=== PATIENT | female | born 2000 | race Caucasian/White ===

== ENCOUNTER 2020-01-21 12:10 | Emergency (ER) | payer BC, OTHER ==
--- NOTE | 2020-01-21 12:38 | ED ---
General Adult HPI - General Chief complaint: Abdominal Pain Stated complaint: right side abd pain Time Seen by Provider: 01/21/20 12:25 Source: patient, RN notes reviewed, old records reviewed Mode of arrival: ambulatory Limitations: no limitations - History of Present Illness Initial comments: This is a 19-year-old female who presents to the emergency department with sudden onset of right lower pelvic pain starting at 5:00 yesterday. Patient states the pain is gotten a little bit better but it continues to be quite sharp at this time. Patient states she's not because she is taking control. Patient denies any nausea vomiting diarrhea. Patient states the pain does not radiate to her back. Patient is denying any dysuria hematuria urinary frequency. Patient is no history of kidney stones. - Related Data Home Medications Medication Instructions Recorded Confirmed No Known Home Medications 03/23/14 01/21/20 Allergies Allergy/AdvReac Type Severity Reaction Status Date / Time No Known Allergies Allergy Verified 01/21/20 12:48 Review of Systems ROS Statement: Those systems with pertinent positive or pertinent negative responses have been documented in the HPI. ROS Other: All systems not noted in ROS Statement are negative. Past Medical History Past Medical History: No Reported History Additional Past Medical History / Comment(s): behavior problems History of Any Multi-Drug Resistant Organisms: None Reported Past Surgical History: No Surgical Hx Reported Additional Past Surgical History / Comment(s): pe tubes Past Psychological History: Depression Smoking Status: Never smoker Past Alcohol Use History: None Reported Past Drug Use History: Marijuana General Exam - General Exam Comments Initial Comments: GENERAL: Patient is well-developed and well-nourished. Patient is nontoxic and well- hydrated and is in mild distress. ENT: Neck is soft and supple. No significant lymphadenopathy is noted. Oropharynx is clear. Moist mucous membranes. Neck has full range of motion without eliciting any pain. EYES: The sclera were anicteric and conjunctiva were pink and moist. Extraocular movements were intact and pupils were equal round and reactive to light. Eyeli ds were unremarkable. PULMONARY: Unlabored respirations. Good breath sounds bilaterally. No audible rales rhonchi or wheezing was noted. CARDIOVASCULAR: There is a regular rate and rhythm without any murmurs gallops or rubs. ABDOMEN: Patient is tender in the right lower quadrant. More in the pelvis of the abdomen. SKIN: Skin is clear with no lesions or rashes and otherwise unremarkable. NEUROLOGIC: Patient is alert and oriented x3. Cranial nerves II through XII are grossly intact. Motor and sensory are also intact. Normal speech, volume and content. Symmetrical smile. MUSCULOSKELETAL: Normal extremities with adequate strength and full range of motion. No lower extremity swelling or edema. No calf tenderness. LYMPHATICS: No significant lymphadenopathy is noted PSYCHIATRIC: Normal psychiatric evaluation. Limitations: no limitations Course Vital Signs 01/21/20 01/21/20 12:23 13:50 Temperature 98.9 F Pulse Rate 78 82 Respiratory 18 20 Rate Blood Pressure 120/77 116/65 O2 Sat by Pulse 97 99 Oximetry Medical Decision Making - Medical Decision Making CT shows an ovarian cyst which is consistent with the ultrasound. - Lab Data Result diagrams: 01/21/20 12:48 01/21/20 12:48 Lab Results 01/21/20 01/21/20 01/21/20 Range/Units 12:37 12:37 12:48 WBC 12.8 H (4.0-11.0) k/uL RBC 4.84 (3.80-5.40) m/uL Hgb 13.2 (11.4-16.0) gm/dL Hct 40.6 (34.0-46.0) % MCV 83.9 (80.0-100.0) fL MCH 27.4 (25.0-35.0) pg MCHC 32.6 (31.0-37.0) g/dL RDW 14.4 (11.5-15.5) % Plt Count 258 (150-450) k/uL Neutrophils % 79 % Lymphocytes % 15 % Monocytes % 4 % Eosinophils % 0 % Basophils % 0 % Neutrophils # 10.1 H (1.3-7.7) k/uL Lymphocytes # 1.9 (1.0-4.8) k/uL Monocytes # 0.5 (0-1.0) k/uL Eosinophils # 0.0 (0-0.7) k/uL Basophils # 0.0 (0-0.2) k/uL Hypochromasia Slight Sodium (137-145) mmol/L Potassium (3.5-5.1) mmol/L Chloride (98-107) mmol/L Carbon Dioxide (22-30) mmol/L Anion Gap mmol/L BUN (7-17) mg/dL Creatinine (0.52-1.04) mg/dL Est GFR (CKD-EPI)AfAm (>60 ml/min/1.73 sqM) Est GFR (CKD-EPI)NonAf (>60 ml/min/1.73 sqM) Glucose (74-99) mg/dL Calcium (8.4-10.2) mg/dL Total Bilirubin (0.2-1.3) mg/dL AST (14-36) U/L ALT (4-34) U/L Alkaline Phosphatase (38-126) U/L Total Protein (6.3-8.2) g/dL Albumin (3.5-5.0) g/dL Amylase (30-110) U/L Lipase (23-300) U/L Urine Color Yellow Urine Appearance Clear (Clear) Urine pH 6.0 (5.0-8.0) Ur Specific [place] 1.031 (1.001-1.035) Urine Protein Trace H (Negative) Urine Glucose (UA) Negative (Negative) Urine Ketones Trace H (Negative) Urine Blood Negative (Negative) Urine Nitrite Negative (Negative) Urine Bilirubin Negative (Negative) Urine Urobilinogen 2.0 (<2.0) mg/dL Ur Leukocyte Esterase Negative (Negative) Urine HCG, Qual Not Detected (Not Detectd) 01/21/20 Range/Units 12:48 WBC (4.0-11.0) k/uL RBC (3.80-5.40) m/uL Hgb (11.4-16.0) gm/dL Hct (34.0-46.0) % MCV (80.0-100.0) fL MCH (25.0-35.0) pg MCHC (31.0-37.0) g/dL RDW (11.5-15.5) % Plt Count (150-450) k/uL Neutrophils % % Lymphocytes % % Monocytes % % Eosinophils % % Basophils % % Neutrophils # (1.3-7.7) k/uL Lymphocytes # (1.0-4.8) k/uL Monocytes # (0-1.0) k/uL Eosinophils # (0-0.7) k/uL Basophils # (0-0.2) k/uL Hypochromasia Sodium 140 (137-145) mmol/L Potassium 3.6 (3.5-5.1) mmol/L Chloride 103 (98-107) mmol/L Carbon Dioxide 27 (22-30) mmol/L Anion Gap 10 mmol/L BUN 11 (7-17) mg/dL Creatinine 0.56 (0.52-1.04) mg/dL Est GFR (CKD-EPI)AfAm >90 (>60 ml/min/1.73 sqM) Est GFR (CKD-EPI)NonAf >90 (>60 ml/min/1.73 sqM) Glucose 87 (74-99) mg/dL Calcium 9.8 (8.4-10.2) mg/dL Total Bilirubin 0.7 (0.2-1.3) mg/dL AST 22 (14-36) U/L ALT 14 (4-34) U/L Alkaline Phosphatase 91 (38-126) U/L Total Protein 8.1 (6.3-8.2) g/dL Albumin 5.0 (3.5-5.0) g/dL Amylase 62 (30-110) U/L Lipase 70 (23-300) U/L Urine Color Urine Appearance (Clear) Urine pH (5.0-8.0) Ur Specific [place] (1.001-1.035) Urine Protein (Negative) Urine Glucose (UA) (Negative) Urine Ketones (Negative) Urine Blood (Negative) Urine Nitrite (Negative) Urine Bilirubin (Negative) Urine Urobilinogen (<2.0) mg/dL Ur Leukocyte Esterase (Negative) Urine HCG, Qual (Not Detectd) Disposition Clinical Impression: Ovarian cyst Disposition: HOME SELF-CARE Condition: Good Instructions (If sedation given, give patient instructions): Ovarian Cyst (ED) Additional Instructions: 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 Patient should return for any worsening symptoms or fever. Is patient prescribed a controlled substance at d/c from ED?: No Referrals: Faraz Singh MD [Primary Care Provider] - 1-2 days Time of Disposition: 15:14
[2020-01-21 13:02] LABS: Appearance,Urine Clear (Clear); Bilirubin,Urine Negative (Negative); Blood,Urine Negative (Negative); Color,Urine Yellow; Glucose,Urine (UA) Negative (Negative); Ketones,Urine Trace (Negative); Leukocyte Esterase,Urine Negative (Negative); Nitrite,Urine Negative (Negative); Protein,Urine Trace (Negative); Specific Gravity,Urine 1.031 (1.001-1.035)
[2020-01-21 13:02] LABS: Basophils % (A) 0 %; Eosinophils % (A) 0 %; HCT 40.6 % (34.0-46.0); HGB 13.2 gm/dL (11.4-16.0); Hypochromasia Slight; Lymphocytes # (A) 1.9 k/uL (1.0-4.8); Lymphocytes % (A) 15 %; MCH 27.4 pg (25.0-35.0); MCHC 32.6 g/dL (31.0-37.0); MCV 83.9 fL (80.0-100.0); Mean Platelet Volume 7.1; Monocytes # (A) 0.5 k/uL (0-1.0); Monocytes % (A) 4 %; Neutrophils # (A) 10.1 k/uL (1.3-7.7); Neutrophils % (A) 79 %; Platelet Count 258 k/uL (150-450); RBC 4.84 m/uL (3.80-5.40); RDW 14.4 % (11.5-15.5); WBC 12.8 k/uL (4.0-11.0)
[2020-01-21 13:13] LABS: ALT 14 U/L (4-34); AST 22 U/L (14-36); African American GFR (CKD) >90 (>60 ml/min/1.73 sqM); Alkaline Phosphatase 91 U/L (38-126); Amylase 62 U/L (30-110); Anion Gap 10 mmol/L; Blood Urea Nitrogen 11 mg/dL (7-17); Calcium 9.8 mg/dL (8.4-10.2); Carbon Dioxide 27 mmol/L (22-30); Chloride 103 mmol/L (98-107); Glucose 87 mg/dL (74-99); Non-African American GFR(CKD) >90 (>60 ml/min/1.73 sqM); Potassium 3.6 mmol/L (3.5-5.1); Sodium 140 mmol/L (137-145); Total Bilirubin 0.7 mg/dL (0.2-1.3); Total Protein 8.1 g/dL (6.3-8.2)
[2020-01-21 13:52] VITALS: RESP 20
--- NOTE | 2020-01-21 13:59 | US ---
EXAMINATION TYPE: US transvaginal plus Dopplers DATE OF EXAM: 01/21/2020 COMPARISON: NONE CLINICAL HISTORY: 19-year-old female Rule out ovarian torsion . Pt states sudden RLQ pain that starte d yesterday TECHNIQUE: Transvaginal sonographic images of the pelvis. Color Doppler and spectral waveform analysi s of the ovarian arteries and veins. Date of LMP: 01/09/2020 FINDINGS: EXAM MEASUREMENTS: Uterus: 6.8 x 2.8 x 3.7 cm Endometrial Stripe: 0.2 cm Right Ovary: 3.0 x 1.8 x 1.8 cm Left Ovary: 6.1 x 3.8 x 5.2 cm 1. Uterus: Anteverted with Fluid within the endocervical canal 2. Endometrium: wnl 3. Right Ovary: wnl, follicles 4. Left Ovary: Enlarged secondary to a hypoechoic lesion, probable hemorrhagic cyst= 4.7 x 2.8 x 3.9 cm Spectral, color and waveform doppler imaging shows good arterial and venous flow within the ovaries ; there is no evidence for ovarian torsion. 5. Bilateral Adnexa: wnl 6. Posterior cul-de-sac: wnl IMPRESSION: 1. Left ovary enlarged secondary to a 4.7 cm hypoechoic lesion, probable hemorrhagic cyst. Follow-up in 6-8 weeks to ensure involution. 2. No sonographic evidence for ovarian torsion. 3. Fluid within the endocervical canal could relate to menstruation.
--- NOTE | 2020-01-21 15:05 | CT ---
EXAMINATION TYPE: CT abdomen pelvis w con DATE OF EXAM: 01/21/2020 COMPARISON: Ultrasound 01/21/2020 HISTORY: RLQ pain CT DLP: 379.9 mGycm Automated exposure control for dose reduction was used. TECHNIQUE: Helical acquisition of images from the lung bases through the pelvis have been completed. CONTRAST: Performed without Oral Contrast and with IV Contrast, patient injected with 100 mL of Isovue 300. FINDINGS: LUNG BASES: No significant abnormality is appreciated. AORTA: No significant abnormality is appreciated. LIVER/GB: No significant abnormality is appreciated. PANCREAS: No significant abnormality is seen. SPLEEN: No significant abnormality is seen. ADRENALS: No significant abnormality is seen. KIDNEYS: No significant abnormality is seen. REPRODUCTIVE ORGANS: Oval focus of low-attenuation present in the left adnexal region likely correspo nds to ultrasound finding measure partially 5.6 x 2.4 x 4.1 cm BOWEL: Fluid-filled loops of small bowel are present. Appendix not seen definitively. FREE AIR: No Free Air visible. ASCITES: None visible. PELVIC ADENOPATHY: None visualized. RETROPERITONEAL ADENOPATHY: No Retroperitoneal Adenopathy visible. URINARY BLADDER: No significant abnormality is seen. OSSEOUS STRUCTURES: No significant abnormality is seen. IMPRESSION: LEFT OVARIAN LOW DENSE FOCUS LIKELY CORRESPONDS TO PATIENT'S ULTRASOUND FINDING. CORRELATE FOR POSSIB LE ENTERITIS. Additional findings above.
[2020-01-21 15:39] VITALS: BP 113/65; PULSE 81; TEMP 98.3
== END 2020-01-21 15:20 | disposition home or self-care (01) ==
LOC: EC 12:10
DX: N83.209 Unspecified ovarian cyst, unspecified side (principal)
CPT/HCPCS: 36415; 80053; 82150; 83690; 85025; 81003; 81025; 93975; 76830; 74177; 99284; Q9967

== ENCOUNTER → 2020-03-19 | Outpatient (CLI) | payer BC, OTHER ==
--- NOTE | 2020-03-20 13:50 | US ---
EXAMINATION TYPE: US pelvic complete DATE OF EXAM: 03/19/2020 COMPARISON: NONE CLINICAL HISTORY: N83.20 Previous left ovarian cyst. known left cyst TECHNIQUE: TA. Transabdominal sonographic images Date of LMP: 03/05/2020 EXAM MEASUREMENTS: Uterus: 8.6 x 3.1 x 4.6 cm Endometrial Stripe: 0.5 cm Right Ovary: 2.6 x 1.2 x 1.4 cm Left Ovary: 4.4 x 5.0 x 4.1 cm 1. Uterus: Anteverted wnl 2. Endometrium: wnl 3. Right Ovary: wnl 4. Left Ovary: 4.4 by 4.1 x 5.0 cm complex cyst as seen on previous US 2 months ago. Previous measur ement 4.7 x 2.8 x 3.9 cm. 5. Bilateral Adnexa: wnl 6. Posterior cul-de-sac: wnl IMPRESSION: 1. 4.4 cm complex cyst left ovary. This appears more hypoechoic on the current examination although s lightly larger by measurement criteria.
== END | disposition home or self-care (01) ==
LOC: RADUSWWP 16:22
PROVIDERS: ATTEND Obstetrics & Gynecology
DX: N83.202 Unspecified ovarian cyst, left side (principal)
CPT/HCPCS: 76856

== ENCOUNTER → 2020-05-07 | Outpatient (CLI) | payer BC, OTHER ==
--- NOTE | 2020-05-07 15:08 | US ---
EXAMINATION TYPE: US pelvic complete DATE OF EXAM: 05/07/2020 COMPARISON: US 03/19/2020, 01/21/2020 CLINICAL HISTORY: N83.0 Lt ovarian cyst. TECHNIQUE: . Transabdominal sonographic images of the pelvis were acquired. Date of LMP: End April 2020 EXAM MEASUREMENTS: Uterus: 8.0 x 3.0 x 3.3 cm Endometrial Stripe: 0.4 cm Right Ovary: 2.1 x 1.2 x 1.6 cm Left Ovary: 4.6 x 3.8 x 5.0 cm 1. Uterus: Anteverted wnl 2. Endometrium: wnl 3. Right Ovary: wnl 4. Left Ovary: Complex area visualized measuring 4.1 x 3.6 x 4.6. This measured 4.4 by 4.1 x 5.0 on 03/19/2020 Spectral, color and waveform doppler imaging shows arterial and venous flow within the left ovary. 5. Bilateral Adnexa: wnl as visualized 6. Posterior cul-de-sac: Tiny amount of free fluid visualized IMPRESSION: Left ovarian hypoechoic focus may represent hemorrhagic cyst, similar to prior exam
== END | disposition home or self-care (01) ==
LOC: RADUSWWP 12:13
PROVIDERS: ATTEND Obstetrics & Gynecology
DX: R93.89 Abnormal findings on diagnostic imaging of other specified body structures (principal); N83.202 Unspecified ovarian cyst, left side
CPT/HCPCS: 76856

== ENCOUNTER 2020-08-10 16:53 | Emergency (ER) | payer BC, OTHER ==
--- NOTE | 2020-08-10 17:56 | ED ---
Abdominal Pain HPI - General Chief Complaint: Abdominal Pain Stated Complaint: ovarian cyst Time Seen by Provider: 08/10/20 17:21 Source: patient, RN notes reviewed Mode of arrival: ambulatory Limitations: no limitations - History of Present Illness Initial Comments: A showed a 19-year-old female that comes emergency Department complaining of ovarian cyst pain. She stated that she has had similar pain to this but this one is more severe. No other pain is about a 5-6 out of 10, she does not want any pain medication at this point. It has been going on for about 1-2 days has been constant. Nothing is making the pain better or worse. She stated that there is a potential that she could be . She does not take control/quit taking it for about 2 months. She has recently had sexual activity. She denies any nausea vomiting diarrhea constipation fever fatigue chills. - Related Data Home Medications Medication Instructions Recorded Confirmed No Known Home Medications 03/23/14 01/21/20 Allergies Allergy/AdvReac Type Severity Reaction Status Date / Time No Known Allergies Allergy Verified 08/10/20 17:08 Review of Systems ROS Statement: Those systems with pertinent positive or pertinent negative responses have been documented in the HPI. ROS Other: All systems not noted in ROS Statement are negative. Past Medical History Past Medical History: No Reported History Additional Past Medical History / Comment(s): behavior problems History of Any Multi-Drug Resistant Organisms: None Reported Past Surgical History: No Surgical Hx Reported Additional Past Surgical History / Comment(s): pe tubes Past Psychological History: Anxiety, Depression Smoking Status: Never smoker Past Alcohol Use History: None Reported Past Drug Use History: Marijuana General Exam Limitations: no limitations General appearance: alert, in no apparent distress Head exam: Present: atraumatic, normocephalic, normal inspection Eye exam: Present: normal appearance, PERRL, EOMI. Absent: scleral icterus, conjunctival injection, periorbital swelling ENT exam: Present: normal exam, mucous membranes moist Neck exam: Present: normal inspection. Absent: tenderness, meningismus, lymphadenopathy Respiratory exam: Present: normal lung sounds bilaterally. Absent: respiratory distress, wheezes, rales, rhonchi, stridor Cardiovascular Exam: Present: regular rate, normal rhythm, normal heart sounds. Absent: systolic murmur, diastolic murmur, rubs, gallop, clicks GI/Abdominal exam: Present: soft, normal bowel sounds. Absent: distended, tenderness, guarding, rebound, rigid Extremities exam: Present: normal inspection, full ROM, normal capillary refill. Absent: tenderness, pedal edema, joint swelling, calf tenderness Back exam: Present: normal inspection Neurological exam: Present: alert, oriented X3, CN II-XII intact Psychiatric exam: Present: normal affect, normal mood Skin exam: Present: warm, dry, intact, normal color. Absent: rash Course Vital Signs 08/10/20 17:09 Temperature 99.0 F Pulse Rate 81 Respiratory 18 Rate Blood Pressure 109/71 O2 Sat by Pulse 99 Oximetry Medical Decision Making - Medical Decision Making 19-year-old female complaining of lower abdominal pain/ovarian cyst pain Ultrasound ordered test ordered Labs unremarkable negative . Case discussed with Dr. Mina was decided patient could discharged home with conservative management and follow-up with [facility]OOM [facility]KER. - Lab Data Result diagrams: 08/10/20 17:53 08/10/20 17:53 Lab Results 08/10/20 08/10/20 08/10/20 Range/Units 17:53 17:53 18:17 WBC 10.4 (4.0-11.0) k/uL RBC 4.91 (3.80-5.40) m/uL Hgb 13.0 (11.4-16.0) gm/dL Hct 40.2 (34.0-46.0) % MCV 82.0 (80.0-100.0) fL MCH 26.4 (25.0-35.0) pg MCHC 32.2 (31.0-37.0) g/dL RDW 14.2 (11.5-15.5) % Plt Count 245 (150-450) k/uL MPV 7.2 Neutrophils % 74 % Lymphocytes % 20 % Monocytes % 4 % Eosinophils % 0 % Basophils % 0 % Neutrophils # 7.7 (1.3-7.7) k/uL Lymphocytes # 2.1 (1.0-4.8) k/uL Monocytes # 0.4 (0-1.0) k/uL Eosinophils # 0.0 (0-0.7) k/uL Basophils # 0.1 (0-0.2) k/uL Sodium 141 (137-145) mmol/L Potassium 4.0 (3.5-5.1) mmol/L Chloride 105 (98-107) mmol/L Carbon Dioxide 27 (22-30) mmol/L Anion Gap 9 mmol/L BUN 7 (7-17) mg/dL Creatinine 0.52 (0.52-1.04) mg/dL Est GFR (CKD-EPI)AfAm >90 (>60 ml/min/1.73 sqM) Est GFR (CKD-EPI)NonAf >90 (>60 ml/min/1.73 sqM) Glucose 111 H (74-99) mg/dL Calcium 9.9 (8.4-10.2) mg/dL Total Bilirubin 0.4 (0.2-1.3) mg/dL AST 25 (14-36) U/L ALT 14 (4-34) U/L Alkaline Phosphatase 64 (38-126) U/L Total Protein 7.9 (6.3-8.2) g/dL Albumin 4.8 (3.5-5.0) g/dL Urine HCG, Qual Not Detected (Not Detectd) - Radiology Data Radiology results: report reviewed, image reviewed Increased size of the 6.6 cm complex left ovarian cystic structure again may represent hemorrhagic cyst. endometrioma not excluded. Consider confirmation with MRI given large size. Disposition Clinical Impression: Ovarian cyst Disposition: HOME SELF-CARE Condition: Stable Instructions (If sedation given, give patient instructions): Ovarian Cyst (ED) Additional Instructions: Please return to the Emergency Department if symptoms worsen or any other concerns. Follow-up primary care 1-2 days Follow-up with [facility] for possible MRI prescription. Take pain medications as needed. Is patient prescribed a controlled substance at d/c from ED?: No Referrals: Faraz Singh MD [Primary Care Provider] - 1-2 days Time of Disposition: 19:26
[2020-08-10 18:03] LABS: Basophils # (A) 0.1 k/uL (0-0.2); Basophils % (A) 0 %; Eosinophils % (A) 0 %; HCT 40.2 % (34.0-46.0); Lymphocytes # (A) 2.1 k/uL (1.0-4.8); Lymphocytes % (A) 20 %; MCH 26.4 pg (25.0-35.0); MCHC 32.2 g/dL (31.0-37.0); Mean Platelet Volume 7.2; Monocytes # (A) 0.4 k/uL (0-1.0); Monocytes % (A) 4 %; Neutrophils # (A) 7.7 k/uL (1.3-7.7); Neutrophils % (A) 74 %; Platelet Count 245 k/uL (150-450); RBC 4.91 m/uL (3.80-5.40); RDW 14.2 % (11.5-15.5); WBC 10.4 k/uL (4.0-11.0)
[2020-08-10 18:13] LABS: ALT 14 U/L (4-34); AST 25 U/L (14-36); African American GFR (CKD) >90 (>60 ml/min/1.73 sqM); Albumin 4.8 g/dL (3.5-5.0); Alkaline Phosphatase 64 U/L (38-126); Anion Gap 9 mmol/L; Blood Urea Nitrogen 7 mg/dL (7-17); Calcium 9.9 mg/dL (8.4-10.2); Carbon Dioxide 27 mmol/L (22-30); Chloride 105 mmol/L (98-107); Glucose 111 mg/dL (74-99); Non-African American GFR(CKD) >90 (>60 ml/min/1.73 sqM); Sodium 141 mmol/L (137-145); Total Bilirubin 0.4 mg/dL (0.2-1.3); Total Protein 7.9 g/dL (6.3-8.2)
--- NOTE | 2020-08-10 19:01 | US ---
EXAMINATION TYPE: US transvaginal DATE OF EXAM: 08/10/2020 COMPARISON: CT, US CLINICAL HISTORY: Ovarian cyst. Pain x 1 day. Hx left ovarian cyst. G0. TECHNIQUE: Transvaginal (TV). Transabdominal sonographic images of the pelvis were acquired. Date of LMP: Unknown EXAM MEASUREMENTS: Uterus: 7.1 x 4.2 x 3.3 cm Endometrial Stripe: 0.6 cm Right Ovary: 3.9 x 1.7 x 2.4 cm Left Ovary: 8.0 x 5.9 x 5.8 cm 1. Uterus: Anteverted Minimal fluid seen in cervical endometrium measuring 1.1 x 0.3 x 0.2 cm. Min imal fluid seen anterior/superior to uterus measuring 0.8 x 2.1 x 0.5 cm. 2. Endometrium: Measures 0.6 cm. 3. Right Ovary: Measures upper limits of normal versus slightly enlarged. 4. Left Ovary: Appears enlarged measuring 8 cm in length. Redemonstrated complex 6.6 x 5.0 x 5.0 cyst like structure, increased in size compared to prior study (previously measured 4.1 x 3.6 x 4.6 cm). Spectral, color and waveform doppler imaging shows arterial and venous flow within the ovaries. 5. Bilateral Adnexa: Anechoic fluid seen in left adnexa measuring 1.4 x 1.5 x 2.7 cm. 6. Posterior cul-de-sac: Fluid seen measuring 1.0 x 1.1 x 1.9 cm. IMPRESSION: Increased size of 6.6 cm complex left ovarian cystic structure again may represent hemorrhagic cyst. Other etiologies such as endometrioma not excluded. Consider confirmation with MRI, given large size . No evidence of ovarian torsion.
[2020-08-10 20:14] VITALS: BP 122/70; PULSE 68; RESP 16; TEMP 97.3
== END 2020-08-10 20:14 | disposition home or self-care (01) ==
LOC: EC 16:53
DX: N83.202 Unspecified ovarian cyst, left side (principal)
CPT/HCPCS: 36415; 76830; 80053; 81025; 85025; 93975; 99284

== ENCOUNTER 2020-08-25 06:25 | Day surgery (SDC) | payer BC, OTHER ==
[2020-08-24 09:12] VITALS: BMI 15.7
--- NOTE | 2020-08-24 18:04 | P.HPOB ---
History of Present Illness H&P Date: 08/24/20 Chief Complaint: Large left ovarian cyst, pelvic pain This is a 19 y.o. female, 0, who presents for laparoscopy with drainage of left ovarian cyst, possible ovarian cystectomy, possible left oophorectomy, possible ablation of endometriosis. She was originally diagnosed with a left ovarian cyst in May and the cyst measured 4.6 cm. Her latest US on 08/10/2020 showed a 6.6 x 5 x 5 cm complex left ovarian cyst with normal flow. She complains of sudden onset of left lower quadrant pain and pressure that radiates to her back and left buttocks. She has had decreased appetite, but no vomiting. She has been off control pills for about 1.5 months. She has had irregular menses since then. She may start on Xulane patches after surgery. 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 Currently sexually active. Social Hx: Single. 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 of Systems Constitutional: Denies chills, Denies fever Eyes: denies blurred vision, denies pain Ears, nose, mouth and throat: Denies headache, Denies sore throat Cardiovascular: Denies chest pain, Denies shortness of breath Respiratory: Denies cough Gastrointestinal: Reports abdominal pain, Reports nausea, Denies vomiting Genitourinary: Reports pelvic pain Menstruation: Reports menses variable Musculoskeletal: Reports low back pain Integumentary: Denies pruritus, Denies rash Neurological: Denies numbness, Denies weakness Psychiatric: Reports anxiety, Reports depression Past Medical History Past Medical History: No Reported History Additional Past Medical History / Comment(s): behavior problems History of Any Multi-Drug Resistant Organisms: None Reported Past Surgical History: Ear Surgery Additional Past Surgical History / Comment(s): pe tubes Past Anesthesia/Blood Transfusion Reactions: No Reported Reaction, Motion Sickness Past Psychological History: Anxiety, Depression Smoking Status: Never smoker Past Alcohol Use History: None Reported Past Drug Use History: Marijuana Additional Drug Use History / Comment(s): Daily Marijuana use. Advised no use 24 hrs prior to procedure. - Past Family History Mother Family Medical History: No Reported History Medications and Allergies Home Medications Medication Instructions Recorded Confirmed Type Ibuprofen [Motrin Ib] 400 mg PO DAILY 08/24/20 08/24/20 History Allergies Allergy/AdvReac Type Severity Reaction Status Date / Time No Known Allergies Allergy Verified 08/25/20 06:55 Exam Osteopathic Statement: *. No significant issues noted on an osteopathic structural exam other than those noted in the History and Physical/Consult. Intake and Output 08/24/20 08/24/20 08/24/20 06:59 14:59 22:59 Other: Weight 43.091 kg HEENT: within normal limits Heart: regular rate and rhythm Lungs: clear to auscultation bilaterally Abdomen: soft, mild tenderness in left lower quadrant Pelvic: uterus mid position, non-tender with fullness and tenderness in left adnexal region Extremities: neg. Juanito's. Assessment and Plan (1) Left ovarian cyst Current Visit: No Status: Acute Code(s): N83.202 - UNSPECIFIED OVARIAN CYST, LEFT SIDE SNOMED Code(s): 03208496 (2) Pelvic pain Current Visit: No Status: Acute Code(s): R10.2 - PELVIC AND PERINEAL PAIN SNOMED Code(s): 75602715 Plan: Proceed with laparoscopy, possible drainage left ovarian cyst, possible left ovarian cystectomy, possible ablation of endometriosis, possible left oophorectomy. I have discussed the risks, benefits, and alternative therapies for the above- mentioned procedure and for both sedation/anesthesia as well as necessary blood products administration, if indicated, as they pertain to this patient. The patient has indicated her understanding and acceptance of the risks and procedures discussed.
[~2020-08-25 06:25] MED LIST: DEXAMETHASONE SOD PHOSPHATE 4 MG/ML 1 ML VIAL IV ONE; LACTATED RINGERS 1,000 ML IV SCH; LIDOCAINE 1% (10MG/ML) FOR IV START INTRADERMA PRN; MIDAZOLAM 2 MG/2 ML VIAL IV PRN; ONDANSETRON 4 MG/2 ML VIAL IVP ONE; Pre Op ABX Message 1 EACH MISC MISCELLANE ONE
[2020-08-25] MEDS ORDERED: HYDROmorphone 0.5 MG/0.5 ML SYRINGE IVP PRN (07:00)
[2020-08-25] MEDS ORDERED: ROCURONIUM 10 MG/ML (5 ML VIAL) IV ONE (07:40)
[2020-08-25] MEDS ORDERED: GLYCOPYRROLATE 0.2 MG/ML 2 ML VIAL ONE (07:40)
[2020-08-25] MEDS ORDERED: PROPOFOL 10 MG/ML 20 ML VIAL IV ONE (07:40)
[2020-08-25] MEDS ORDERED: fentaNYL (PF) 50 MCG/ML 2 ML AMP ONE (07:40)
[2020-08-25] MEDS ORDERED: NEOSTIGMINE 1 MG/ML 10 ML VIAL ONE (07:40)
[2020-08-25] MEDS ORDERED: SUCCINYLCHOLINE CHLORIDE 100 MG/5 ML SYR IV ONE (07:40)
[2020-08-25] MEDS ORDERED: LIDOCAINE 1% INJ 10MG/ML (20 ML MDV) ONE (07:40)
[2020-08-25] MEDS ORDERED: KETOROLAC 15 MG/ML 1 ML VIAL ONE (07:40)
[2020-08-25] MEDS ORDERED: HYDROmorphone (PF) 1 MG/ML ONE (07:40)
[2020-08-25] MEDS ORDERED: MIDAZOLAM 2 MG/2 ML VIAL ONE (07:40)
[2020-08-25] MEDS ORDERED: BUPIVACAINE (PF) 0.25% 30 ML VIAL SQ ONE (07:43)
--- NOTE | 2020-08-25 08:33 | P.OP ---
Date of Procedure: 08/25/20 Preoperative Diagnosis: Large left ovarian cyst Pelvic pain Postoperative Diagnosis: Pelvic pain Large left ovarian endometrioma Endometriosis Procedure(s) Performed: Laparoscopy Drainage of large left ovarian endometrioma Anesthesia: BARBARA Surgeon: Rocio Lorenzo Estimated Blood Loss (ml): 10 Pathology: none sent Condition: stable Disposition: same day Indications for Procedure: This is a 19 y.o. female, 0, who presents for laparoscopy with drainage of left ovarian cyst, possible ovarian cystectomy, possible left oophorectomy, possible ablation of endometriosis. She was originally diagnosed with a left ovarian cyst in May and the cyst measured 4.6 cm. Her latest US on 08/10/2020 showed a 6.6 x 5 x 5 cm complex left ovarian cyst with normal flow. She complains of sudden onset of left lower quadrant pain and pressure that radiates to her back and left buttocks. She has had decreased appetite, but no vomiting. She has been off control pills for about 1.5 months. She has had irregular menses since then. She may start on Xulane patches after surgery. Operative Findings: Uterus is small, anteverted, sounded to 8-1/2 cm. Right ovary and tube appear normal. Left ovary is significantly enlarged and slightly adherent to the posterior cul-de-sac with a large amount of chocolate colored fluid within it. There are a couple implants of endometriosis immediately over the bladder. Appendix is visualized and appears normal. Description of Procedure: The patient is taken to the operating room where she is placed in the dorsal lithotomy position. She is prepped and draped in the normal sterile fashion. Her bladder is drained with a catheter and then removed. Examination is performed under anesthesia. Uterus is found to be anteverted with no adnexal masses on the right. There is a large fullness on the left. Next a bivalve speculum was placed in the patient's vagina and a single-tooth tenaculum was used to grasp the anterior lip of the cervix. The cervix is gently dilated with Rogers dilators until a sound could be placed. Uterus is sounded to 8 cm. The kroner uterine manipulator is then inserted through the cervix and the balloon is inflated. The single-tooth tenaculum is removed and the speculum is removed. Gloves are changed and attention is turned to the abdomen. A small vertical incision is made in the infraumbilical fold and then a 5 mm disposable bladeless trocar inserted under direct visualization using a towel clip to lift the abdomen. Once inside, pneumoperitoneum was achieved with CO2 gas. The insert was removed and the camera was replaced. Good hemostasis was noted. There was a little bit of gas under the omentum. She was placed in Trendelenburg position in the pelvic contents were inspected. A small stab incision is made suprapubically and a 5 mm disposable bladeless trocar was inserted. Next a probe was inserted and the pelvic contents were inspected. Pictures were taken. Upon lifting up the ovary out of the pelvis, a small hole was made in the ovarian cyst on the posterior side. A large amount of chocolate-colored fluid was extruded. A suction assembly line driver was used to suction the cyst fluid and irrigate the area. The ovary did decrease significantly in size with drainage of the cyst. There was a small adhesion posteriorly behind the ovary in the cul-de-sac. There was also noted to be a few implants of endometriosis on the bladder. Due to its location, this was not cauterized. Once the cyst was drained and irrigation was complete, the procedure was concluded. The inferior trocar was removed under direct visualization. Pneumoperitoneum was released. The upper trocar was then removed. The skin incisions were closed with 4-0 undyed Vicryl suture in a subcuticular fashion. Incision sites were then injected with quarter percent Marcaine. Approximately 6 mL were used. The kroner uterine manipulator was then deflated and removed. Minimal bleeding was noted. All sponge and needle counts are correct. The patient is then taken to recovery room in stable condition.
[2020-08-25 08:50] VITALS: TEMP 96.8
[2020-08-25 09:19] VITALS: RESP 16
[2020-08-25] MEDS ORDERED: HYDROcodone/APAP 5-325MG 1 EACH TAB ONE (09:46)
[2020-08-25] MEDS ORDERED: HYDROcodone/APAP 5-325MG 1 EACH TAB PO ONE (09:47)
[2020-08-25 10:34] VITALS: BP 102/57; PULSE 65
== END 2020-08-25 11:06 | disposition home or self-care (01) ==
LOC: OR 06:25
PROVIDERS: ATTEND Obstetrics & Gynecology
DX: N80.1 Endometriosis of ovary (principal); N80.8 Other endometriosis; R63.0 Anorexia; N92.6 Irregular menstruation, unspecified; F91.9 Conduct disorder, unspecified; F41.9 Anxiety disorder, unspecified; F32.9 Major depressive disorder, single episode, unspecified; Z68.51 Body mass index [BMI] pediatric, less than 5th percentile for age; Z98.890 Other specified postprocedural states; Z87.898 Personal history of other specified conditions
CPT/HCPCS: 81025; 49322; J2250; J1100; J2710; J2405; J2001; J3010; J1170; J1885; J0330; J2704

== ENCOUNTER → 2021-05-19 | Outpatient (CLI) | payer BC, OTHER ==
[2021-05-19 12:07] LABS: Basophils # (A) 0.1 k/uL (0-0.2); Basophils % (A) 1 %; Eosinophils % (A) 1 %; HCT 40.3 % (34.0-46.0); HGB 12.8 gm/dL (11.4-16.0); Lymphocytes # (A) 2.9 k/uL (1.0-4.8); Lymphocytes % (A) 29 %; MCH 27.1 pg (25.0-35.0); MCHC 31.8 g/dL (31.0-37.0); MCV 85.3 fL (80.0-100.0); Mean Platelet Volume 7.2; Monocytes # (A) 0.5 k/uL (0-1.0); Monocytes % (A) 5 %; Neutrophils # (A) 6.2 k/uL (1.3-7.7); Neutrophils % (A) 63 %; Platelet Count 310 k/uL (150-450); RBC 4.72 m/uL (3.80-5.40); RDW 14.5 % (11.5-15.5); WBC 9.8 k/uL (4.0-11.0)
== END | disposition home or self-care (01) ==
LOC: LABPAT 10:57
PROVIDERS: ATTEND Obstetrics & Gynecology
DX: Z01.812 Encounter for preprocedural laboratory examination (principal)
CPT/HCPCS: 85025

== ENCOUNTER 2021-05-20 06:28 | Inpatient (IN) | payer BC, OTHER ==
--- NOTE | 2021-05-19 18:49 | P.HPOB ---
History of Present Illness H&P Date: 05/19/21 Chief Complaint: Pelvic pain, Complex left ovarian cyst This is a 20 y.o. female, 0, who complains of pelvic pain that started suddenly in March. She went to ER and was diagnosed with a complex left ovarian cyst measuring 5.7 x 4.8 x 4.6 cm. She has a history of a previous left ovarian endometrioma that was drained in August 2020. Initially the pain was sharp, but currently it is more of a fullness and pressure sensation. She was started on control after her last laparoscopy but stopped taking it due to concern for infertility. She has used Depo Provera and Nexplanon in the past. I have advised her that we should start on something for control after surgery to prevent the cysts from reforming. OB Hx: G0 Business Performance Analyst Hx: Currently sexually active with partner of 3 years. No history of STDs. No current control. Social Hx: Single. Works as [employer] [facility] [employer]. Review of Systems Constitutional: Denies chills, Denies fever Eyes: denies blurred vision, denies pain Ears, nose, mouth and throat: Denies headache, Denies sore throat Cardiovascular: Denies chest pain, Denies shortness of breath Respiratory: Denies cough Gastrointestinal: Reports abdominal pain Genitourinary: Reports pelvic pain Menstruation: Reports period normal Musculoskeletal: Reports low back pain Integumentary: Denies pruritus, Denies rash Neurological: Denies numbness, Denies weakness Psychiatric: Reports anxiety, Reports depression Endocrine: Denies fatigue, Denies weight change Past Medical History Past Medical History: No Reported History Additional Past Medical History / Comment(s): behavior problems History of Any Multi-Drug Resistant Organisms: None Reported Past Surgical History: Ear Surgery Additional Past Surgical History / Comment(s): Laproscopy and ovarian cyst drained. Past Anesthesia/Blood Transfusion Reactions: No Reported Reaction, Motion Sickness Past Psychological History: Anxiety, Depression Smoking Status: Never smoker Past Alcohol Use History: None Reported Past Drug Use History: Marijuana Additional Drug Use History / Comment(s): Daily Marijuana use. Advised no use 24 hrs prior to procedure. - Past Family History Mother Family Medical History: No Reported History Medications and Allergies Home Medications Medication Instructions Recorded Confirmed Type Norelgestromin/Ethin.estradiol 1 patch TRANSDERM WEEKLY 05/20/21 05/20/21 History [Zafemy 150-35 Mcg/Day Patch] Allergies Allergy/AdvReac Type Severity Reaction Status Date / Time No Known Allergies Allergy Verified 05/20/21 06:53 Exam Osteopathic Statement: *. No significant issues noted on an osteopathic structural exam other than those noted in the History and Physical/Consult. Intake and Output 05/19/21 05/19/21 05/19/21 06:59 14:59 22:59 Other: Weight 43.998 kg HEENT: within normal limits Heart: regular rate and rhythm Lungs: clear to auscultation Abdomen: soft, mildly tender left lower quadrant Pelvic: uterus mid-position, non-tender with enlarged left adnexa, slightly tender Extremities: negative Juanito's Assessment and Plan (1) Left ovarian cyst Current Visit: No Status: Acute Code(s): N83.202 - UNSPECIFIED OVARIAN CYST, LEFT SIDE SNOMED Code(s): 69745400 (2) Pelvic pain Current Visit: No Status: Acute Code(s): R10.2 - PELVIC AND PERINEAL PAIN SNOMED Code(s): 67600440 Plan: Proceed with laparoscopy, drainage left ovarian cyst, possible ablation of endometriosis, possible left ooophorectomy, possible laparotomy.
[~2021-05-20 06:28] MED LIST changes: -DEXAMETHASONE SOD PHOSPHATE 4 MG/ML 1 ML VIAL IV ONE; -MIDAZOLAM 2 MG/2 ML VIAL IV PRN; -ONDANSETRON 4 MG/2 ML VIAL IVP ONE; -Pre Op ABX Message 1 EACH MISC MISCELLANE ONE
[2021-05-20] MEDS ORDERED: GLYCOPYRROLATE 0.2 MG/ML 2 ML VIAL ONE (07:30)
[2021-05-20] MEDS ORDERED: ONDANSETRON 4 MG/2 ML VIAL ONE (07:30)
[2021-05-20] MEDS ORDERED: ROCURONIUM 10 MG/ML (5 ML VIAL) IV ONE (07:30)
[2021-05-20] MEDS ORDERED: LIDOCAINE 1% INJ 10MG/ML (20 ML MDV) ONE (07:30)
[2021-05-20] MEDS ORDERED: PROPOFOL 10 MG/ML 20 ML VIAL IV ONE (07:30)
[2021-05-20] MEDS ORDERED: MIDAZOLAM 2 MG/2 ML VIAL ONE (07:30)
[2021-05-20] MEDS ORDERED: PHENYLEPHRINE-0.9% NACL SYG 1,000 MCG/10 ML SYRINGE ONE (07:30)
[2021-05-20] MEDS ORDERED: fentaNYL (PF) 50 MCG/ML 2 ML AMP ONE (07:30)
[2021-05-20] MEDS ORDERED: SUCCINYLCHOLINE CHLORIDE 100 MG/5 ML SYR IV ONE (07:30)
[2021-05-20] MEDS ORDERED: NEOSTIGMINE 1 MG/ML 10 ML VIAL ONE (07:30)
[2021-05-20] MEDS ORDERED: HYDROmorphone (PF) 1 MG/ML ONE (07:30)
[2021-05-20] MEDS ORDERED: BUPIVACAINE (PF) 0.25% 30 ML VIAL SQ ONE (07:31)
[2021-05-20] MEDS ORDERED: LACTATED RINGERS 1,000 ML IV ONE ×2 (08:22→09:20)
--- NOTE | 2021-05-20 09:02 | XR ---
EXAMINATION TYPE: XR abdomen 1V DATE OF EXAM: 05/20/2021 COMPARISON: None INDICATION: Foreign body TECHNIQUE: Single view abdomen supine view FINDINGS: There is a normal bowel gas pattern. There appears to be free air present adjacent to bowel loops rel ated to the patient's surgery, correlated with the procedure. Psoas margins are normal. No organomegaly is present. Nasogastric tube is present with the tip in the left mid abdomen. A catheter is present within the pe lvis. No radiopaque foreign bodies are identified. IMPRESSION: 1. Suspicious radiopaque foreign bodies are not identified. 2. Catheters discussed above. 3. There appears to be free air within the pelvis and lower abdomen. Correlate with the procedure.
[2021-05-20 09:20] LABS: Basophils # (A) 0.1 k/uL (0-0.2); Basophils % (A) 0 %; Eosinophils # (A) 0.1 k/uL (0-0.7); Eosinophils % (A) 0 %; HCT 32.3 % (34.0-46.0); HGB 10.3 gm/dL (11.4-16.0); Lymphocytes # (A) 3.5 k/uL (1.0-4.8); Lymphocytes % (A) 18 %; MCH 27.5 pg (25.0-35.0); MCV 85.8 fL (80.0-100.0); Mean Platelet Volume 7.3; Monocytes # (A) 0.7 k/uL (0-1.0); Monocytes % (A) 3 %; Neutrophils # (A) 15.1 k/uL (1.3-7.7); Neutrophils % (A) 77 %; Platelet Count 270 k/uL (150-450); RBC 3.76 m/uL (3.80-5.40); RDW 14.1 % (11.5-15.5); WBC 19.6 k/uL (4.0-11.0)
[2021-05-20] MEDS: HYDROmorphone 0.5 MG/0.5 ML SYRINGE IVP PRN ×3 (10:01→10:34)
--- NOTE | 2021-05-20 10:26 | P.OP ---
Date of Procedure: 05/20/21 Preoperative Diagnosis: Pelvic pain Left ovarian complex cyst Postoperative Diagnosis: Ovarian endometrioma Endometriosis Procedure(s) Performed: Laparoscopy with conversion to exploratory laparotomy Drainage of left ovarian endometrioma Repair of mesentery artery injury Anesthesia: BARBARA Surgeon: Rocio Lorenzo Label Machine Operator #1: Praneeth Bear Label Machine Operator #2: Govind Sarmiento Estimated Blood Loss (ml): 800 Pathology: none sent Condition: stable Disposition: floor Indications for Procedure: This is a 20-year-old female 0 who presents for laparoscopy due to left pelvic pain and complex left ovarian cyst on ultrasound. She does have a history of an endometrioma on this side and endometriosis. She has consented to laparoscopy with drainage of left ovarian cyst, possible ablation of endometriosis, possible salpingo-oophorectomy, possible laparotomy. I have discussed the risks, benefits, and alternative therapies for the above- mentioned procedure and for both sedation/anesthesia as well as necessary blood products administration, if indicated, as they pertain to this patient. The patient has indicated her understanding and acceptance of the risks and procedures discussed. Operative Findings: A large approximately 6 cm left ovarian cyst is noted. Upon opening the cyst, a large amount of chocolate-colored fluid was drained. The ovary itself and tube were freely mobile with no adhesions noted. The right tube and ovary appeared normal. There was endometriosis implants over the bladder anteriorly. Immediately upon entering the abdomen after converting to exploratory laparotomy, there was noted to be a hematoma over the mesentery to the large bowel and a small rent in the mesentery of the small bowel. There did not appear to be any injury to large or small bowel after running the bowel with Dr. Sarmiento. The areas of bleeding within the mesentery arteries were sutured and did appear hemostatic after the surgery was complete. Description of Procedure: The patient was taken to the operating room where she is placed in the dorsal lithotomy position. She is prepped and draped in the normal sterile fashion. Her bladder is drained with a catheter and then removed. Examination is performed under anesthesia. The uterus is found to be smal, anteverted, with slightly enlarged left ovary. Next a bivalve speculum was placed in the patient's vagina. A single-tooth tenaculum was used to grasp the anterior lip of the cervix. The uterus is then sounded to 9 cm. The kroner uterine manipulator is inserted through the cervix and then the balloon is inflated. The single-tooth tenaculum is removed and no bleeding was noted. The speculum is removed. Gloves are changed and attention is turned to the abdomen. Next a towel clip was placed above the umbilicus for retraction. A small stab incision is in the infraumbilical fold. Next a 5 mm blade this trocar with optical is inserted into the peritoneal cavity lifting the abdomen with the towel clip as this was done. As I was going and it appeared that I was in the peritoneal cavity however shortly after insufflating with CO2 gas, a large amount of blood was seen pumping. At this time immediately I converted to an exploratory laparotomy and immediately called for assistance with my partner Dr. Bear and general surgery. A Pfannenstiel skin incision was immediately cut. The fascia was then cut in the midline and extended laterally bilaterally with Heard scissors. Next the anterior lip of the fascia was grasped with 2 Allis clamps and then extended superiorly with Heard scissors. The inferior aspect of the fascial incision was grasped with 2 Allis clamps and then also ended inferiorly with Heard scissors. The peritoneum was then entered bluntly with a hemostat and extended laterally bilaterally with 2 fingers. The John retractor was placed and sponges were used to try to evaluate where the bleeding was coming from. At this time it appeared to be higher in the abdomen and the decision was made to T up the incision. The incision was teed upwards towards the umbilicus on the skin with a scalpel and then the fascia with Heard scissors. Once I had this open, I was able to find an area actively bleeding on the mesentery to the small bowel. This area was stitched with 0 Vicryl suture in interrupted [id number] fashion and hemostasis was assured in this area. Inspection further revealed there was an area near the large bowel that was a large hematoma and may be bleeding and therefore this area was packed until a general surgeon could come into the room. The left ovary was visualized after packing the bowels and a large cyst was noted. A small cut was made within the wall of the ovary and a large amount of chocolate-colored fluid was suctioned out. The cyst did immediately go down in size. Next the rest of the pelvic area was inspected and there was noted to be endometriosis over the bladder area where he could not be cauterized. The right tube and ovary appeared normal. The left tube also appeared normal. There were no adhesions in the pelvis. Once Dr. Sarmiento arrived he ran the small bowel and found no injury to the small bowel. He also inspected the large bowel and did not see any obvious injury to the large bowel. There was an area in the mesentery above the large bowel that appeared to have a small rent in it that was bleeding. This was stitched by him. There was also a hematoma in this area that did appear to be stable. Once he felt that no active bleeding was going on and that there was no further injury, he left the case. An x-ray was then performed before closing since we opened up without counting instruments. This appeared clear. There was noted to be a NG tube in place along with the uterine manipulator. No instruments were seen on the x-ray. Next I began to grab the edges of the peritoneum to close the peritoneum and I did notice the area of hematoma did appear to be actively bleeding. Rupture was placed and Dr. Sarmiento was called back into the case. He did return immediately and open this area up a little further and placed a few more stitches. We observed the area closely for some time and did not find any more active bleeding. We placed some Surgicel powder over the area in the area stayed hemostatic. Copious irrigation was carried out prior to closing. Good hemostasis was noted throughout. The peritoneum was then closed with 0 Vicryl suture in a running fashion. Next the fascial layer was closed with 0 PDS suture on the vertical portion. Next 0 PDS suture was used on the Pfannenstiel incision with 2 sutures meeting in the midline and the knots buried on either side and in the midline. The subcutaneous tissue was then closed with 2-0 Vicryl suture in a running fashion. The skin was then closed with rom. All sponge and needle counts are correct. The patient is then taken to recovery room in stable condition. Family is advised of surgical findings and surgical complications. Will follow closely.
--- NOTE | 2021-05-20 11:16 | P.OP ---
Date of Procedure: 05/20/21 Preoperative Diagnosis: Mesenteric laceration Postoperative Diagnosis: Transverse colon mesenteric laceration Terminal ileum mesenteric laceration Procedure(s) Performed: Repair of mesenteric laceration Anesthesia: BARBARA Surgeon: Govind Sarmiento Crane Helper #1: Rocio Lorenzo Estimated Blood Loss (ml): 400 Pathology: none sent Condition: stable Disposition: PACU Indications for Procedure: I was called to the OR for an intraoperative consult. Dr. Lorenzo had noticed a large hemoperitoneum when she placed her umbilical trocar in the peritoneal cavity. Dr. Lorenzo had converted to a open exploratory laparotomy. She started with a Pfannenstiel incision and then extended this to a midline fashion. Dr. Lorenzo had suture. A laceration of the ileum mesentery. She had noticed an expanding hematoma of the transverse colon mesentery. I examined the transverse colon mesentery hematoma. It measured approximately 15 x 15 cm. There was evidence of 2 lacerations in the same area of the mesentery. The hematoma was quite large and extended proximally to the level of the stomach. At this point a midline skin incision was extended above the umbilicus. Retractors placed the wound. The patient had a large clot that was withdrawn from around the liver. At this point the small bowel was run from the ligament ligament of Treitz to the terminal ileum. The was no evidence of any injury to the small bowel. In the mesentery of the ileum there was a laceration which was suture ligated. There was no significant hematoma or bleeding from this site. This repair had been done previously Dr. Lorenzo. At this point the colon was examined. The right colon appeared normal the left colon appeared normal. The sigmoid colon appeared normal. In the level of the transverse colon. There was a significant hematoma in the mesentery the hematoma measured approximately 15 x 15 cm. There was small amount of bleeding seen from the inferior laceration. This was stick tied with 3-0 Vicryl suture. The colon edge was examined. The laceration of the mesentery was very close to the edge of the bowel however there was no evidence of any obvious injury to the bowel. At this point the hematoma. Stable. There was no evidence of any significant bleeding. The abdomen was irrigated. No other bleeding was seen. I left the room and Dr. Lorenzo was going to close the abdomen. Approximately 10 minutes later was called back to the room. Dr. Lorenzo had noted some pulsatile bleeding at the level of the transverse colon mesentery. She put a hemostat on the bleeding vessel. At this point the area of the laceration was opened slightly. The bleeding vessel was ligated with a hemostat and then ligated with 3-0 silk suture. The area of the colon was examined. Careful. Several small veins in the area were ligated with 3-0 silk ties. I did not want to open the mesentery more for worry of devascularization colon. At this point Surgicel pack was placed in the area of the mesenteric laceration. There is no bleeding seen. At this point I left the room for Dr. Lorenzo to perform closure of the abdominal wall. Please see her dictation.
[2021-05-20] MEDS ORDERED: HYDROmorphone PCA 10 MG/50 ML BAG IV PRN (11:44)
[2021-05-20] MEDS ORDERED: NALOXONE 0.4 MG/ML 1 ML VIAL IV PRN (11:44)
[2021-05-20] MEDS ORDERED: KETOROLAC 15 MG/ML 1 ML VIAL IVP PRN (11:44)
[2021-05-20] MEDS: LACTATED RINGERS 1,000 ML IV SCH (12:29)
[2021-05-20] MEDS: ONDANSETRON 4 MG/2 ML VIAL IVP PRN (14:07)
--- NOTE | 2021-05-20 18:58 | P.PN ---
Progress Note - Text Progress Note Date: 05/20/21 I came to see the patient and explained surgical findings and complications to her. She is having some nausea and vomiting. She is using a EXECUTIVE PASTRY CHEF pump for pain with some success. Per nursing staff her Georges has been draining clear urine. I explained why she needs to have an NG tube and limit her oral intake until her bowels return to normal peristalsis. She is complaining of a sore throat and very dry throat. We did check with Dr. Sarmiento and he said it would be okay to give her a small amount of ice and a Popsicle. All of her questions were answered and all of her family's questions were answered. I've advised her that Dr. Sarmiento and I will both follow her throughout her hospital stay. She is advised to let her nurse know if she needs anything.
[2021-05-20] MEDS: KETOROLAC 30 MG/ML 1 ML VIAL IVP PRN (20:05)
[2021-05-20] MEDS: diphenhydrAMINE 50 MG/ML 1 ML VIAL IVP PRN (22:08)
[2021-05-21] MEDS: KETOROLAC 30 MG/ML 1 ML VIAL IVP PRN ×3 (02:58→20:04)
[2021-05-21] MEDS: diphenhydrAMINE 50 MG/ML 1 ML VIAL IVP PRN ×2 (03:08→22:05)
[2021-05-21] MEDS: LACTATED RINGERS 1,000 ML IV SCH ×3 (03:36→18:05)
[2021-05-21 06:24] LABS: Basophils % (A) 0 %; Eosinophils % (A) 0 %; HCT 25.4 % (34.0-46.0); Lymphocytes # (A) 2.2 k/uL (1.0-4.8); Lymphocytes % (A) 23 %; MCH 27.5 pg (25.0-35.0); MCHC 33.1 g/dL (31.0-37.0); MCV 83.2 fL (80.0-100.0); Mean Platelet Volume 7.6; Monocytes # (A) 0.5 k/uL (0-1.0); Monocytes % (A) 5 %; Neutrophils % (A) 71 %; Platelet Count 235 k/uL (150-450); RBC 3.05 m/uL (3.80-5.40); RDW 14.5 % (11.5-15.5); WBC 9.8 k/uL (4.0-11.0)
[2021-05-21 06:26] LABS: HGB 8.4 gm/dL (11.4-16.0)
[2021-05-21] MEDS ORDERED: HYDROmorphone 0.5 MG/0.5 ML SYRINGE IVP PRN (08:20)
[2021-05-21 08:30] LABS: African American GFR (CKD) >90 (>60 ml/min/1.73 sqM); Anion Gap 4 mmol/L; Blood Urea Nitrogen 5 mg/dL (7-17); Calcium 8.3 mg/dL (8.4-10.2); Carbon Dioxide 27 mmol/L (22-30); Chloride 103 mmol/L (98-107); Glucose 79 mg/dL (74-99); Non-African American GFR(CKD) >90 (>60 ml/min/1.73 sqM); Potassium 3.6 mmol/L (3.5-5.1); Sodium 134 mmol/L (137-145)
[2021-05-21] MEDS: HYDROmorphone 0.5 MG/0.5 ML SYRINGE IVP PRN ×4 (11:01→21:08)
[2021-05-21 11:10] VITALS: BMI 15.0
--- NOTE | 2021-05-21 11:55 | P.PN ---
Subjective Progress Note Date: 05/21/21 Principal diagnosis: Status post laparoscopy, exploratory laparotomy with drainage of left ovarian endometrioma and repair of mesentery artery injury postoperative day #1 Patient is feeling much better today. Her NG tube and Georges have been removed. She is passing flatus but no bowel movement yet. Her pain is fairly well controlled now with Toradol and occasional Dilaudid. Nausea is only when she takes pain medication. She has been ambulating. She denies any dizziness or lightheadedness when she is walking but does feel occasional nausea with walking. She did have a little bit of vaginal bleeding. Objective - Vital Signs Vital signs: Vital Signs Temp 98.0 F 05/21/21 07:42 Pulse 113 H 05/21/21 07:42 Resp 14 05/21/21 07:42 BP 117/74 05/21/21 07:42 Pulse Ox 97 05/21/21 07:42 Intake & Output 05/20/21 05/21/21 05/21/21 18:59 06:59 18:59 Intake Total 2950 Output Total 975 650 Balance 1974 - Weight 42.2 kg 42.2 kg Intake: IV 2650 Intake, IV Titration 300 Amount Lactated Ringers 1,000 ml 300 @ 100 mls/hr IV .Q10H MEEK Rx#:[id number] Output: Gastric Drainage 50 Urine 175 600 Uretheral (Georges) 300 Estimated Blood Loss 800 Other: Voiding Method Indwelling Catheter Indwelling Catheter Indwelling Catheter # Voids 0 - Constitutional General appearance: Present: no acute distress - Gastrointestinal Gastrointestinal Comment(s): Incision is clean dry and intact with rom in place General gastrointestinal: Present: normal bowel sounds, tenderness (Mild) - Labs CBC & Chem 7: 05/21/21 05:25 05/21/21 05:25 Labs: Abnormal Lab Results - Last 24 Hours (Table) 05/21/21 05/21/21 Range/Units 05:25 05:25 RBC 3.05 L (3.80-5.40) m/uL Hgb 8.4 L D (11.4-16.0) gm/dL Hct 25.4 L (34.0-46.0) % Sodium 134 L (137-145) mmol/L BUN 5 L (7-17) mg/dL Calcium 8.3 L (8.4-10.2) mg/dL Assessment and Plan Assessment: Status post laparoscopy converted to exploratory laparotomy with drainage of left ovarian endometrioma and repair of mesentery artery injury postoperative day #1 (1) Left ovarian cyst Current Visit: No Status: Acute Code(s): N83.202 - UNSPECIFIED OVARIAN CYST, LEFT SIDE SNOMED Code(s): 53850238 (2) Pelvic pain Current Visit: No Status: Acute Code(s): R10.2 - PELVIC AND PERINEAL PAIN SNOMED Code(s): 84270631 Plan: Will discontinue antibiotics at this time. May shower. Will continue to monitor CBC and metabolic panel. We will defer to Dr. Sarmiento on when to advance diet. Currently she is doing well with popsicles and ice chips but is hungry.
[2021-05-21] MEDS: ONDANSETRON 4 MG/2 ML VIAL IVP PRN ×2 (12:53→21:07)
--- NOTE | 2021-05-21 15:45 | P.PN ---
Subjective Progress Note Date: 05/21/21 CHIEF COMPLAINT: Mesenteric laceration HISTORY OF PRESENT ILLNESS: Patient is postop day #1 status post repair of mesenteric lacerations of the transverse colon and terminal ileum. Patient does report abdominal pain. Denies any nausea or vomiting. Eyes any flatus. FINAL COAT SPRAYER pump was discontinued and Georges catheter discontinued this morning. NG tube was pulled out during the night. Afebrile. WBC normalized at 9.8 Hgb did drop from 10.3-8.4 Patient seen and examined with Dr. georges PHYSICAL EXAM: VITAL SIGNS: Reviewed. GENERAL: Well-developed in no acute distress. HEENT: No sclera icterus. Extraocular movements grossly intact. Moist buccal mucosa. Head is atraumatic, normocephalic. ABDOMEN: Soft. Nondistended. Nontender. Incision site clean dry and intact NEUROLOGIC: Alert and oriented. Cranial nerves II through XII grossly intact. ASSESSMENT: 1. status post repair of mesenteric lacerations of the transverse colon and terminal ileum PLAN: -Advance diet to clear liquids. Educated patient slowly with the liquid diet. -Educated patient if she has increase in pain or nausea after eating then she needs to go back to nothing by mouth -Continue pain medication as needed -Encourage patient to ambulate -Continue to monitor patient closely Physician Habilitation Assistant note has been reviewed by physician. Signing provider agrees with the documented findings, assessment, and plan of care. Objective - Vital Signs Vital signs: Vital Signs Temp 98.5 F 05/21/21 14:19 Pulse 115 H 05/21/21 14:19 Resp 16 05/21/21 14:19 BP 106/65 05/21/21 14:19 Pulse Ox 98 05/21/21 14:19 Intake & Output 05/20/21 05/21/21 05/21/21 18:59 06:59 18:59 Intake Total 2950 Output Total 975 650 Balance 1974 - Weight 42.2 kg 42.2 kg Intake: IV 2650 Intake, IV Titration 300 Amount Lactated Ringers 1,000 ml 300 @ 100 mls/hr IV .Q10H MEEK Rx#:[id number] Output: Gastric Drainage 50 Urine 175 600 Uretheral (Georges) 300 Estimated Blood Loss 800 Other: Voiding Method Indwelling Catheter Indwelling Catheter Indwelling Catheter # Voids 0 2 - Labs CBC & Chem 7: 05/21/21 05:25 05/21/21 05:25 Labs: Abnormal Lab Results - Last 24 Hours (Table) 05/21/21 05/21/21 Range/Units 05:25 05:25 RBC 3.05 L (3.80-5.40) m/uL Hgb 8.4 L D (11.4-16.0) gm/dL Hct 25.4 L (34.0-46.0) % Sodium 134 L (137-145) mmol/L BUN 5 L (7-17) mg/dL Calcium 8.3 L (8.4-10.2) mg/dL
[2021-05-22] MEDS: HYDROmorphone 0.5 MG/0.5 ML SYRINGE IVP PRN (06:22)
[2021-05-22] MEDS: ONDANSETRON 4 MG/2 ML VIAL IVP PRN (06:26)
[2021-05-22 06:44] LABS: Basophils % (A) 0 %; Eosinophils # (A) 0.1 k/uL (0-0.7); Eosinophils % (A) 1 %; HCT 22.9 % (34.0-46.0); HGB 7.5 gm/dL (11.4-16.0); Lymphocytes # (A) 2.4 k/uL (1.0-4.8); Lymphocytes % (A) 25 %; MCH 27.6 pg (25.0-35.0); MCHC 32.6 g/dL (31.0-37.0); MCV 84.6 fL (80.0-100.0); Mean Platelet Volume 7.4; Monocytes # (A) 0.5 k/uL (0-1.0); Monocytes % (A) 5 %; Neutrophils # (A) 6.8 k/uL (1.3-7.7); Neutrophils % (A) 69 %; Platelet Count 197 k/uL (150-450); RDW 14.1 % (11.5-15.5); WBC 9.9 k/uL (4.0-11.0)
[2021-05-22 07:01] LABS: African American GFR (CKD) >90 (>60 ml/min/1.73 sqM); Anion Gap 3 mmol/L; Blood Urea Nitrogen 6 mg/dL (7-17); Calcium 8.1 mg/dL (8.4-10.2); Carbon Dioxide 28 mmol/L (22-30); Chloride 104 mmol/L (98-107); Glucose 80 mg/dL (74-99); Non-African American GFR(CKD) >90 (>60 ml/min/1.73 sqM); Potassium 3.2 mmol/L (3.5-5.1); Sodium 135 mmol/L (137-145)
[2021-05-22] MEDS: LACTATED RINGERS 1,000 ML IV SCH ×3 (08:26→20:36)
[2021-05-22] MEDS: KETOROLAC 30 MG/ML 1 ML VIAL IVP PRN ×3 (08:41→20:29)
--- NOTE | 2021-05-22 09:49 | P.PN ---
Subjective Progress Note Date: 05/22/21 Principal diagnosis: Status post laparoscopy, exploratory laparotomy with drainage of left ovarian endometrioma and repair of mesentery artery injury postoperative day #2 Patient has been ambulating. She was passing flatus yesterday but not as much today. She does still have some abdominal pain that is worse with ambulation. She states that she has only use the Dilaudid a few times but does feel nauseated after using it. They have been giving Zofran with the Dilaudid and she is concerned this may be slowing up her bowel function. She denies any nausea or vomiting other than when she has the Dilaudid. She has minimal vaginal bleeding. Objective - Vital Signs Vital signs: Vital Signs Temp 98.7 F 05/22/21 08:27 Pulse 88 05/22/21 08:27 Resp 15 05/22/21 08:27 BP 120/66 05/22/21 08:27 Pulse Ox 100 05/22/21 08:27 Intake & Output 05/21/21 05/22/21 05/22/21 18:59 06:59 18:59 Intake Total 280 Balance 280 Weight 42.2 kg Intake: Oral 280 Other: Voiding Method Indwelling Catheter # Voids 2 3 - Constitutional General appearance: Present: no acute distress - Respiratory Respiratory: bilateral: CTA - Gastrointestinal Gastrointestinal Comment(s): Incision clean dry and intact with rom in place General gastrointestinal: Present: normal bowel sounds (Mostly in the lower quadrants), soft. Absent: distended - Labs CBC & Chem 7: 05/22/21 06:26 05/22/21 06:26 Labs: Abnormal Lab Results - Last 24 Hours (Table) 05/22/21 05/22/21 Range/Units 06:26 06:26 RBC 2.70 L (3.80-5.40) m/uL Hgb 7.5 L (11.4-16.0) gm/dL Hct 22.9 L (34.0-46.0) % Sodium 135 L (137-145) mmol/L Potassium 3.2 L (3.5-5.1) mmol/L BUN 6 L (7-17) mg/dL Calcium 8.1 L (8.4-10.2) mg/dL Assessment and Plan Assessment: Status post laparoscopy converted to exploratory laparotomy with drainage of left ovarian endometrioma and repair of mesentery artery injury postoperative day #2 Hypokalemia (1) Left ovarian cyst Current Visit: No Status: Acute Code(s): N83.202 - UNSPECIFIED OVARIAN CYST, LEFT SIDE SNOMED Code(s): 88603311 (2) Pelvic pain Current Visit: No Status: Acute Code(s): R10.2 - PELVIC AND PERINEAL PAIN SNOMED Code(s): 87430688 Plan: Will replace potassium. Patient is encouraged to continue ambulating. Will try to keep her on a schedule with her Toradol and switched from Dilaudid to morphine for breakthrough pain. She states she will try to take it without Zofran at first. Will defer to general surgery regarding advancing diet. Currently tolerating clear liquids.
[2021-05-22] MEDS: MORPHINE SULFATE 2 MG/ML SYRINGE IVP PRN ×2 (10:30→18:10)
[2021-05-22] MEDS ORDERED: POTASSIUM BICARBONATE/CIT AC 20 MEQ TABLET.EFF PO ONE (10:30)
--- NOTE | 2021-05-22 11:31 | P.PN ---
Progress Note - Text Progress Note Date: 05/22/21 Patient states she feels better. Her hemoglobin is 7.5. On exam vital signs are stable. Abdomen soft. Incisions clean. Status post exploratory laparotomy for repair of mesenteric bleeding. Patient will have her diet advanced
[2021-05-22] MEDS: diphenhydrAMINE 50 MG/ML 1 ML VIAL IVP PRN (20:30)
[2021-05-23] MEDS: KETOROLAC 30 MG/ML 1 ML VIAL IVP PRN (01:33)
[2021-05-23] MEDS: MORPHINE SULFATE 2 MG/ML SYRINGE IVP PRN ×2 (03:46→06:12)
[2021-05-23 04:49] LABS: Basophils % (A) 0 %; Eosinophils # (A) 0.1 k/uL (0-0.7); Eosinophils % (A) 1 %; Lymphocytes # (A) 2.3 k/uL (1.0-4.8); Lymphocytes % (A) 33 %; MCH 27.2 pg (25.0-35.0); MCV 85.2 fL (80.0-100.0); Mean Platelet Volume 7.5; Monocytes # (A) 0.3 k/uL (0-1.0); Monocytes % (A) 5 %; Neutrophils # (A) 4.2 k/uL (1.3-7.7); Neutrophils % (A) 60 %; Platelet Count 192 k/uL (150-450); RBC 2.58 m/uL (3.80-5.40); RDW 14.3 % (11.5-15.5)
[2021-05-23 05:12] LABS: African American GFR (CKD) >90 (>60 ml/min/1.73 sqM); Anion Gap 3 mmol/L; Blood Urea Nitrogen 4 mg/dL (7-17); Calcium 8.1 mg/dL (8.4-10.2); Carbon Dioxide 27 mmol/L (22-30); Chloride 105 mmol/L (98-107); Glucose 78 mg/dL (74-99); Non-African American GFR(CKD) >90 (>60 ml/min/1.73 sqM); Potassium 3.8 mmol/L (3.5-5.1); Sodium 135 mmol/L (137-145)
[2021-05-23] MEDS ORDERED: MORPHINE SULFATE 2 MG/ML SYRINGE IVP ONE (07:50)
[2021-05-23] MEDS ORDERED: MORPHINE SULFATE 4 MG/ML SYRINGE IVP PRN (08:17)
[2021-05-23] MEDS ORDERED: Acetaminophen-Codeine 300-30mg TAB PO PRN (11:02)
--- NOTE | 2021-05-23 11:12 | P.PN ---
Subjective Progress Note Date: 05/23/21 Principal diagnosis: Status post laparoscopy, exploratory laparotomy with drainage of left ovarian endometrioma and repair of mesentery artery injury postoperative day #3 Patient is passing flatus and did have a small liquidy bowel movement with no solid stool in it. Her pain had been better controlled with Toradol and morphine up until this morning. She started having sharp right lower quadrant pain and she was given an additional dose of morphine which did help with her pain. She also is complaining of a headache this morning but thinks it is related to the morphine. She has been ambulating. She is tolerating regular diet with no nausea or vomiting. She denies any dizziness or lightheadedness with ambulating. Objective - Vital Signs Vital signs: Vital Signs Temp 98.2 F 05/23/21 08:36 Pulse 83 05/23/21 08:36 Resp 15 05/23/21 08:36 BP 110/68 05/23/21 08:36 Pulse Ox 99 05/23/21 08:36 Intake & Output 05/22/21 05/23/21 05/23/21 18:59 06:59 18:59 Intake Total 280 Balance 280 Intake: Oral 280 Other: # Voids 3 3 - Constitutional General appearance: Present: no acute distress - Gastrointestinal Gastrointestinal Comment(s): Incision is clean dry and intact with rom in place. More tenderness is noted in the right and left lower quadrants today as compared to her upper quadrants. No distention is noted. General gastrointestinal: Present: normal bowel sounds Localized gastrointestinal: tender: RLQ - Labs CBC & Chem 7: 05/23/21 03:35 05/23/21 03:35 Labs: Abnormal Lab Results - Last 24 Hours (Table) 05/23/21 05/23/21 Range/Units 03:35 03:35 RBC 2.58 L (3.80-5.40) m/uL Hgb 7.0 L (11.4-16.0) gm/dL Hct 22.0 L (34.0-46.0) % Sodium 135 L (137-145) mmol/L BUN 4 L (7-17) mg/dL Calcium 8.1 L (8.4-10.2) mg/dL Assessment and Plan Assessment: Status post laparoscopy converted to exploratory laparotomy with drainage of left ovarian endometrioma and repair of mesentery artery injury postoperative day #3 Hypokalemia-resolved Blood loss anemia-stable (1) Left ovarian cyst Current Visit: No Status: Acute Code(s): N83.202 - UNSPECIFIED OVARIAN CYST, LEFT SIDE SNOMED Code(s): 10233304 (2) Pelvic pain Current Visit: No Status: Acute Code(s): R10.2 - PELVIC AND PERINEAL PAIN SNOMED Code(s): 08478738 Plan: Will try to switch to oral pain medications today. Will keep morphine as a backup. Will start iron daily. We'll also add Mylicon. If her pain is well- controlled with oral pain medication and she continues to tolerate diet, anticipate probable discharge home tomorrow.
[2021-05-23] MEDS ORDERED: [UNRECOGNIZED DRUG - OTHER] TRANSDERM SCH (12:00)
[2021-05-23] MEDS: IBUPROFEN 400 MG TAB PO PRN ×2 (12:53→19:38)
[2021-05-23] MEDS: SIMETHICONE 80 MG CHEWABLE PO SCH ×3 (12:53→21:50)
[2021-05-23] MEDS: IRON PS CMPLX/VIT B12/FA 1 EACH CAP PO SCH (12:54)
--- NOTE | 2021-05-23 13:03 | P.PN ---
Progress Note - Text Progress Note Date: 05/23/21 Patient looks well. She is out of bed. She appears to be minimal pain. On exam vital signs are stable. An esophagram incisions clean and intact. Hemoglobin was 7. Status post exploratory laparotomy and repair of mesenteric bleeding and and endometrioma excision. Patient will most likely discharge home tomorrow.
[2021-05-23] MEDS: DOCUSATE 100 MG CAP PO SCH (20:24)
[2021-05-23] MEDS: diphenhydrAMINE 50 MG/ML 1 ML VIAL IVP PRN (20:31)
[2021-05-23] MEDS: Acetaminophen-Codeine 300-30mg TAB PO PRN (21:50)
[2021-05-24] MEDS: IBUPROFEN 400 MG TAB PO PRN ×2 (05:30→12:03)
[2021-05-24] MEDS: LACTATED RINGERS 1,000 ML IV SCH ×4 (07:55→10:24)
[2021-05-24] MEDS: SIMETHICONE 80 MG CHEWABLE PO SCH ×2 (08:41→12:03)
[2021-05-24] MEDS: DOCUSATE 100 MG CAP PO SCH (08:41)
[2021-05-24] MEDS: IRON PS CMPLX/VIT B12/FA 1 EACH CAP PO SCH (08:42)
[2021-05-24] MEDS: Acetaminophen-Codeine 300-30mg TAB PO PRN (08:42)
[2021-05-24 08:55] VITALS: BP 108/67; PULSE 83; RESP 15; TEMP 98.2
--- NOTE | 2021-05-24 09:08 | P.DS ---
Providers Date of admission: 05/23/21 11:13 Expected date of discharge: 05/24/21 Attending physician: Rocio Lorenzo Consults: 05/20/21 11:08 Consult Physician Routine Consulting Provider: Govind Sarmiento Consult Reason/Comments: Trocar injury Do you want consulting provider notified?: Already Contacted 05/20/21 11:44 Consult Physician Routine Consulting Provider: Govind Sarmiento Consult Reason/Comments: intraoperative consultation Do you want consulting provider notified?: Already Contacted Primary care physician: Faraz Singh - Discharge Diagnosis(es) (1) Left ovarian cyst Current Visit: No Status: Acute (2) Pelvic pain Current Visit: No Status: Acute Hospital Course: As is a 20-year-old female 0 who underwent a laparoscopy that was converted to a laparotomy with drainage of left ovarian endometrioma and repair of mesenteric artery injury on 05/20/2021. Postoperatively she has done well. She was kept on NG tube overnight for the first night and this was discontinued the next day. She was then slowly given liquids and her diet has been advanced to low fiber as of yesterday. She was just switched to oral pain medications yesterday and has tolerated these well. She still has some mild right lower quadrant pain but overall her pain pills are working. She is passing flatus but no bowel movement yet. She feels comfortable going home at this time. Her hemoglobin did drop to around 7 but has been stable and she has been asymptomatic. She also had potassium replaced orally. Her vital signs are stable. Abdomen is soft with positive bowel sounds 4. Incision is clean dry and intact with rom in place. Extremities show negative Homans. Impression is status post the above noted procedure postoperative day #4. Plan is to discharge home today. I removed the rom myself in place Steri-Strips and the incision appears well approximated. She will be given a prescription for ibuprofen and Tylenol 3. Routine postoperative instructions are given. She is advised to follow up in the office in 1 week for a postoperative check. She is advised to call the office if she has any further questions or concerns prior to her appointment time. She is advised to continue taking iron and a stool softener. She is advised to call the office or return to the emergency room if she has any severe lightheadedness dizziness or increasing pain. Showering is okay but she is advised not to use the tub baths for the first week. Procedures: Laparoscopy Exploratory laparotomy with repair of mesenteric artery injury and drainage of left ovarian endometrioma Patient Condition at Discharge: Stable Plan - Discharge Summary Discharge Rx Participant: Yes New Discharge Prescriptions: New Docusate [Colace] 100 mg PO BID #30 cap Ibuprofen [Motrin] 600 mg PO Q6HR PRN #60 tab PRN Reason: MILD Pain Iron Ps Cmplx/Vit B12/FA [Niferex-150 Forte] 1 each PO DAILY #30 cap Acetaminophen-Codeine 300-30mg [Tylenol w/codeine #3] 1 each PO Q4HR PRN #30 tab PRN Reason: Moderate To Severe Pain Continue Norelgestromin/Ethin.estradiol [Zafemy 150-35 Mcg/Day Patch] 1 patch TRANSDERM WEEKLY Discharge Medication List Norelgestromin/Ethin.estradiol [Zafemy 150-35 Mcg/Day Patch] 1 patch TRANSDERM WEEKLY 05/20/21 [History] Acetaminophen-Codeine 300-30mg [Tylenol w/codeine #3] 1 each PO Q4HR PRN #30 tab 05/24/21 [Rx] Docusate [Colace] 100 mg PO BID #30 cap 05/24/21 [Rx] Ibuprofen [Motrin] 600 mg PO Q6HR PRN #60 tab 05/24/21 [Rx] Iron Ps Cmplx/Vit B12/FA [Niferex-150 Forte] 1 each PO DAILY #30 cap 05/24/21 [Rx] Follow up Appointment(s)/Referral(s): Rocio Lorenzo DO [Doctor of Osteopathic Medicine] - 1 Week Activity/Diet/Wound Care/Special Instructions: Activity as tolerated. Diet as tolerated. May shower, but no tub baths for 1 week. No intercourse for 1 week. Discharge Disposition: HOME SELF-CARE
[2021-05-24 10:36] LABS: HCT 28.3 % (34.0-46.0); MCH 27.4 pg (25.0-35.0); MCV 85.5 fL (80.0-100.0); Mean Platelet Volume 7.6; Platelet Count 302 k/uL (150-450); RBC 3.31 m/uL (3.80-5.40); RDW 14.4 % (11.5-15.5); WBC 6.3 k/uL (4.0-11.0)
--- NOTE | 2021-05-24 11:30 | P.PN ---
Subjective Progress Note Date: 05/24/21 CHIEF COMPLAINT: Mesenteric laceration HISTORY OF PRESENT ILLNESS: Patient is postop day #4 status post repair of mesenteric lacerations of the transverse colon and terminal ileum. And status post endometrioma excision by Dr. Lorenzo. Patient reports a pulling sensation in the right lower abdomen. The pain is controlled. She is having flatus. Denies any nausea or vomiting. Hemoglobin has gone up from 7-9. She is tolerating low fiber diet. Afebrile. PHYSICAL EXAM: VITAL SIGNS: Reviewed. GENERAL: Well-developed in no acute distress. HEENT: No sclera icterus. Extraocular movements grossly intact. Moist buccal mucosa. Head is atraumatic, normocephalic. ABDOMEN: Soft. Nondistended. Minimal tenderness with palpation of the right side abdomen. Incision site clean dry and intact NEUROLOGIC: Alert and oriented. Cranial nerves II through XII grossly intact. ASSESSMENT: 1. status post repair of mesenteric lacerations of the transverse colon and terminal ileum PLAN: -Patient can be discharged from surgical standpoint -Patient to Dr. Sarmiento in the office in one week Physician Media Producer note has been reviewed by physician. Signing provider agrees with the documented findings, assessment, and plan of care. Objective - Vital Signs Vital signs: Vital Signs Temp 98.2 F 05/24/21 07:52 Pulse 83 05/24/21 07:52 Resp 15 05/24/21 07:52 BP 108/67 05/24/21 07:52 Pulse Ox 99 05/24/21 07:52 Intake & Output 05/23/21 05/24/21 05/24/21 18:59 06:59 18:59 Intake Total 340 120 Balance 340 120 Intake: Intake, IV Titration 100 Amount Lactated Ringers 1,000 ml 100 @ 0 mls/hr IV .STK-MED ONE Rx#:[id number] Oral 240 120 Other: Voiding Method Toilet # Voids 1 - Labs CBC & Chem 7: 05/24/21 09:30 05/23/21 03:35 Labs: Abnormal Lab Results - Last 24 Hours (Table) 05/24/21 Range/Units 09:30 RBC 3.31 L (3.80-5.40) m/uL Hgb 9.0 L D (11.4-16.0) gm/dL Hct 28.3 L (34.0-46.0) %
== END 2021-05-24 13:13 | disposition home or self-care (01) | DRG 742 ==
LOC: OR 06:28 → 6PED 09:44 → OR 23:55 → 6PED 05-21 00:26 → OBSVTOIN 05-23 11:13
PROVIDERS: ADMIT Obstetrics & Gynecology; ATTEND Obstetrics & Gynecology
PROC: 0U910ZZ Drainage of Left Ovary, Open Approach (ICD-10-PCS; principal; 2021-05-23)
PROC: 0DJW4ZZ Inspection of Peritoneum, Percutaneous Endoscopic Approach (ICD-10-PCS; 2021-05-23)
PROC: 0DQB0ZZ Repair Ileum, Open Approach (ICD-10-PCS; 2021-05-23)
PROC: 0DQV0ZZ Repair Mesentery, Open Approach (ICD-10-PCS; 2021-05-23)
PROC: 0DQL0ZZ Repair Transverse Colon, Open Approach (ICD-10-PCS; 2021-05-23)
PROC: 0D9770Z Drainage of Stomach, Pylorus with Drainage Device, Via Natural or Artificial Opening (ICD-10-PCS; 2021-05-23)
DX: N80.1 Endometriosis of ovary (principal); S36.893A Laceration of other intra-abdominal organs, initial encounter; N99.72 Accidental puncture and laceration of a genitourinary system organ or structure during other procedure; N80.0 Endometriosis of uterus; F41.9 Anxiety disorder, unspecified; E87.6 Hypokalemia; F32.A Depression, unspecified; D50.0 Iron deficiency anemia secondary to blood loss (chronic); Z53.31 Laparoscopic surgical procedure converted to open procedure; Y83.8 Other surgical procedures as the cause of abnormal reaction of the patient, or of later complication, without mention of misadventure at the time of the procedure; Z20.822 Contact with and (suspected) exposure to COVID-19
CPT/HCPCS: 74018; 80048; 81025; 85025; 85027; 86850; 86900; 86901; 87635

== ENCOUNTER 2021-06-17 07:41 | Emergency (ER) | payer BC, OTHER ==
[2021-06-17 07:47] VITALS: TEMP 97.7
[2021-06-17] MEDS ORDERED: SODIUM CHLORIDE 0.9% 500 ML 500 ML IV ONE (08:07)
[2021-06-17 08:20] LABS: Appearance,Urine Clear (Clear); Bilirubin,Urine Negative (Negative); Blood,Urine Negative (Negative); Color,Urine Yellow; Glucose,Urine (UA) Negative (Negative); Ketones,Urine Negative (Negative); Leukocyte Esterase,Urine Negative (Negative); Nitrite,Urine Negative (Negative); Protein,Urine Trace (Negative); Specific Gravity,Urine 1.022 (1.001-1.035); Urobilinogen,Urine <2.0 mg/dL (<2.0)
--- NOTE | 2021-06-17 08:28 | ED ---
General Adult HPI - General Chief complaint: Abdominal Pain Stated complaint: post surg abd pain Time Seen by Provider: 06/17/21 07:50 Source: patient, RN notes reviewed, old records reviewed Mode of arrival: ambulatory Limitations: no limitations - History of Present Illness Initial comments: 20-year-old female presenting for evaluation of abdominal pain. Pain is right lower quadrant. This began this morning. She does admit to intermittent lower abdominal pain status post her abdominal surgery which was approximately one month ago for a left ovarian cyst. She did have an intraoral operative hemorrhage requiring laparotomy. She was discharged from the hospital in stable condition. She's had some intermittent pain since that time however this morning this became more severe, right lower quadrant abdominal pain. No dysuria or hematuria. No vaginal bleeding. No vomiting. - Related Data Home Medications Medication Instructions Recorded Confirmed Acetaminophen-Codeine 300-30mg 1 tab PO Q4HR PRN 06/17/21 06/17/21 [Tylenol w/codeine #3] Iron Ps Cmplx/Vit B12/FA 1 cap PO DAILY 06/17/21 06/17/21 [Niferex-150 Forte] Norelgestromin/Ethin.estradiol 1 patch TRANSDERM MONREAL 06/17/21 06/17/21 [Xulane 150-35 Mcg/Day Patch] Previous Rx's Medication Instructions Recorded Ibuprofen [Motrin] 600 mg PO Q6HR PRN #60 tab 05/24/21 Allergies Allergy/AdvReac Type Severity Reaction Status Date / Time No Known Allergies Allergy Verified 06/17/21 09:22 Review of Systems ROS Statement: Those systems with pertinent positive or pertinent negative responses have been documented in the HPI. ROS Other: All systems not noted in ROS Statement are negative. Past Medical History Past Medical History: No Reported History Additional Past Medical History / Comment(s): behavior problems History of Any Multi-Drug Resistant Organisms: None Reported Past Surgical History: Ear Surgery Additional Past Surgical History / Comment(s): Laproscopy and ovarian cyst drained. Past Anesthesia/Blood Transfusion Reactions: No Reported Reaction, Motion Sickness Past Psychological History: Anxiety, Depression Smoking Status: Never smoker Past Alcohol Use History: None Reported Past Drug Use History: Marijuana - Past Family History Mother Family Medical History: No Reported History General Exam Limitations: no limitations General appearance: alert, in no apparent distress Head exam: Present: atraumatic, normocephalic Eye exam: Present: normal appearance, PERRL ENT exam: Present: normal exam Neck exam: Present: normal inspection. Absent: tenderness, meningismus Respiratory exam: Present: normal lung sounds bilaterally. Absent: respiratory distress, wheezes Cardiovascular Exam: Present: regular rate, normal rhythm GI/Abdominal exam: Present: soft, tenderness (Focal right lower quadrant tenderness). Absent: distended, guarding, rebound Extremities exam: Present: normal inspection, normal capillary refill. Absent: pedal edema Neurological exam: Present: alert, CN II-XII intact. Absent: motor sensory deficit Psychiatric exam: Present: normal affect, normal mood Skin exam: Present: warm, dry, intact. Absent: cyanosis, diaphoretic Course Vital Signs 06/17/21 07:42 Temperature 97.7 F Pulse Rate 82 Respiratory 17 Rate Blood Pressure 111/78 O2 Sat by Pulse 100 Oximetry - Reevaluation(s) Reevaluation #1: 06/17/21 09:34 Patient reevaluated, resting comfortably, pain is improved. Medical Decision Making - Medical Decision Making 20-year-old female 1 month status post lower abdominal surgery. Presenting for pain. Patient has some right lower quadrant tenderness on exam. No rebound or guarding. She has stable vitals. Workup is initiated, she has normal white blood cell count, hemoglobin is 11 which is improved. She has normal white lites, normal urinalysis. I did perform CT imaging. With shows a trace amount of fluid in the pelvis without any other acute findings. Patient does admit that this pain has been present and intermittent since the time of discharge however it had been improving and then worsened. She has an appointment in one week for follow-up. She's given strict return parameters. She will return with any worsening or changing symptoms. - Lab Data Result diagrams: 06/17/21 08:20 06/17/21 08:20 Lab Results 06/17/21 06/17/21 06/17/21 Range/Units 08:09 08:09 08:20 WBC 7.7 (4.0-11.0) k/uL RBC 4.34 (3.80-5.40) m/uL Hgb 11.0 L (11.4-16.0) gm/dL Hct 35.2 (34.0-46.0) % MCV 81.2 (80.0-100.0) fL MCH 25.4 (25.0-35.0) pg MCHC 31.2 (31.0-37.0) g/dL RDW 13.7 (11.5-15.5) % Plt Count 333 (150-450) k/uL MPV 7.6 Neutrophils % 58 % Lymphocytes % 33 % Monocytes % 6 % Eosinophils % 1 % Basophils % 0 % Neutrophils # 4.5 (1.3-7.7) k/uL Lymphocytes # 2.5 (1.0-4.8) k/uL Monocytes # 0.5 (0-1.0) k/uL Eosinophils # 0.1 (0-0.7) k/uL Basophils # 0.0 (0-0.2) k/uL Hypochromasia Marked PT (9.0-12.0) sec INR (<1.2) APTT (22.0-30.0) sec Sodium (137-145) mmol/L Potassium (3.5-5.1) mmol/L Chloride (98-107) mmol/L Carbon Dioxide (22-30) mmol/L Anion Gap mmol/L BUN (7-17) mg/dL Creatinine (0.52-1.04) mg/dL Est GFR (CKD-EPI)AfAm (>60 ml/min/1.73 sqM) Est GFR (CKD-EPI)NonAf (>60 ml/min/1.73 sqM) Glucose (74-99) mg/dL Plasma Lactic Acid [place] (0.7-2.0) mmol/L Calcium (8.4-10.2) mg/dL Total Bilirubin (0.2-1.3) mg/dL AST (14-36) U/L ALT (4-34) U/L Alkaline Phosphatase (38-126) U/L Total Protein (6.3-8.2) g/dL Albumin (3.5-5.0) g/dL Urine Color Yellow Urine Appearance Clear (Clear) Urine pH 6.0 (5.0-8.0) Ur Specific [place] 1.022 (1.001-1.035) Urine Protein Trace H (Negative) Urine Glucose (UA) Negative (Negative) Urine Ketones Negative (Negative) Urine Blood Negative (Negative) Urine Nitrite Negative (Negative) Urine Bilirubin Negative (Negative) Urine Urobilinogen <2.0 (<2.0) mg/dL Ur Leukocyte Esterase Negative (Negative) Urine HCG, Qual Not Detected (Not Detectd) 06/17/21 06/17/21 06/17/21 Range/Units 08:20 08:20 08:20 WBC (4.0-11.0) k/uL RBC (3.80-5.40) m/uL Hgb (11.4-16.0) gm/dL Hct (34.0-46.0) % MCV (80.0-100.0) fL MCH (25.0-35.0) pg MCHC (31.0-37.0) g/dL RDW (11.5-15.5) % Plt Count (150-450) k/uL MPV Neutrophils % % Lymphocytes % % Monocytes % % Eosinophils % % Basophils % % Neutrophils # (1.3-7.7) k/uL Lymphocytes # (1.0-4.8) k/uL Monocytes # (0-1.0) k/uL Eosinophils # (0-0.7) k/uL Basophils # (0-0.2) k/uL Hypochromasia PT 11.3 (9.0-12.0) sec INR 1.1 (<1.2) APTT 24.5 (22.0-30.0) sec Sodium 140 (137-145) mmol/L Potassium 3.8 (3.5-5.1) mmol/L Chloride 103 (98-107) mmol/L Carbon Dioxide 27 (22-30) mmol/L Anion Gap 10 mmol/L BUN 9 (7-17) mg/dL Creatinine 0.69 (0.52-1.04) mg/dL Est GFR (CKD-EPI)AfAm >90 (>60 ml/min/1.73 sqM) Est GFR (CKD-EPI)NonAf >90 (>60 ml/min/1.73 sqM) Glucose 96 (74-99) mg/dL Plasma Lactic Acid [place] 1.6 (0.7-2.0) mmol/L Calcium 9.7 (8.4-10.2) mg/dL Total Bilirubin 0.5 (0.2-1.3) mg/dL AST 24 (14-36) U/L ALT 17 (4-34) U/L Alkaline Phosphatase 64 (38-126) U/L Total Protein 7.7 (6.3-8.2) g/dL Albumin 4.4 (3.5-5.0) g/dL Urine Color Urine Appearance (Clear) Urine pH (5.0-8.0) Ur Specific [place] (1.001-1.035) Urine Protein (Negative) Urine Glucose (UA) (Negative) Urine Ketones (Negative) Urine Blood (Negative) Urine Nitrite (Negative) Urine Bilirubin (Negative) Urine Urobilinogen (<2.0) mg/dL Ur Leukocyte Esterase (Negative) Urine HCG, Qual (Not Detectd) Disposition Clinical Impression: Abdominal pain Disposition: HOME SELF-CARE Condition: Fair Instructions (If sedation given, give patient instructions): Abdominal Pain (ED) Is patient prescribed a controlled substance at d/c from ED?: No Referrals: Faraz Singh MD [Primary Care Provider] - 1-2 days Rocio Lorenzo DO [Doctor of Osteopathic Medicine] - 1-2 days Time of Disposition: 09:36
[2021-06-17 08:36] LABS: Basophils % (A) 0 %; Eosinophils # (A) 0.1 k/uL (0-0.7); Eosinophils % (A) 1 %; HCT 35.2 % (34.0-46.0); Hypochromasia Marked; Lymphocytes # (A) 2.5 k/uL (1.0-4.8); Lymphocytes % (A) 33 %; MCH 25.4 pg (25.0-35.0); MCHC 31.2 g/dL (31.0-37.0); MCV 81.2 fL (80.0-100.0); Mean Platelet Volume 7.6; Monocytes # (A) 0.5 k/uL (0-1.0); Monocytes % (A) 6 %; Neutrophils # (A) 4.5 k/uL (1.3-7.7); Neutrophils % (A) 58 %; Platelet Count 333 k/uL (150-450); RBC 4.34 m/uL (3.80-5.40); RDW 13.7 % (11.5-15.5); WBC 7.7 k/uL (4.0-11.0)
[2021-06-17 08:45] LABS: INR 1.1 (<1.2); Partial Thromboplastin Time 24.5 sec (22.0-30.0); Prothrombin Time 11.3 sec (9.0-12.0)
[2021-06-17 08:47] LABS: ALT 17 U/L (4-34); AST 24 U/L (14-36); African American GFR (CKD) >90 (>60 ml/min/1.73 sqM); Albumin 4.4 g/dL (3.5-5.0); Alkaline Phosphatase 64 U/L (38-126); Anion Gap 10 mmol/L; Blood Urea Nitrogen 9 mg/dL (7-17); Calcium 9.7 mg/dL (8.4-10.2); Carbon Dioxide 27 mmol/L (22-30); Chloride 103 mmol/L (98-107); Glucose 96 mg/dL (74-99); Non-African American GFR(CKD) >90 (>60 ml/min/1.73 sqM); Potassium 3.8 mmol/L (3.5-5.1); Sodium 140 mmol/L (137-145); Total Bilirubin 0.5 mg/dL (0.2-1.3); Total Protein 7.7 g/dL (6.3-8.2)
--- NOTE | 2021-06-17 09:26 | CT ---
EXAMINATION TYPE: CT abdomen pelvis w con DATE OF EXAM: 06/17/2021 HISTORY: RLQ pain, Recent ovarian cyst drainage CT DLP: 376.6mGycm Automated Exposure Control for Dose Reduction was Utilized. CONTRAST: CT scan of the abdomen and pelvis is performed without oral but with IV Contrast, patient injected wi th 100 mL of Isovue 300. COMPARISON: Prior CT abdomen and pelvis January 21, 2020 FINDINGS: LUNG BASES: No significant abnormality is appreciated. LIVER/GB: Mild Hepatomegaly redemonstrated. PANCREAS: No significant abnormality is seen. SPLEEN: No significant abnormality is seen. ADRENALS: No significant abnormality is seen. KIDNEYS: No significant abnormality is seen. BOWEL: Evaluation is suboptimal due to lack of enteric contrast and patient having little intra-abdom inal fat. No suspicious small or large bowel dilatation. Small amount of free fluid right pelvis near base of cecum. Cecum slightly low-lying into the right pelvis similar to prior. Normal or abnormal a ppendix not clearly identified on this study or prior study. UTERUS/ADNEXA: Anteverted uterus. Difficult to identify ovaries adjacent to nonopacified bowel loops. Probable 2.8 cm thin-walled cyst in the left ovary on axial image 61. This is smaller in size from p rior study. Small amount of free fluid in pelvis. LYMPH NODES: No greater than 1cm abdominal or pelvic lymph nodes are appreciated. OSSEOUS STRUCTURES: Mild facet arthropathy lower lumbar spine. OTHER: No significant additional abnormality is seen. IMPRESSION: Nonspecific small amount of free fluid in the pelvis otherwise no suspicious new or acute findings present.
[2021-06-17 09:47] VITALS: BP 94/65; PULSE 80; RESP 18
== END 2021-06-17 09:47 | disposition home or self-care (01) ==
LOC: EC 07:41
DX: R10.32 Left lower quadrant pain (principal); Z87.42 Personal history of other diseases of the female genital tract; Z98.890 Other specified postprocedural states
CPT/HCPCS: 36415; 80053; 83605; 85025; 85610; 85730; 81003; 81025; 74177; 99284; 96360; Q9967

== ENCOUNTER → 2021-07-21 | Outpatient (CLI) | payer BC, OTHER ==
--- NOTE | 2021-07-21 11:02 | US ---
EXAMINATION TYPE: US pelvic complete DATE OF EXAM: 07/21/2021 COMPARISON: NONE CLINICAL HISTORY: R10.2 Pelvic and perineal pain. Pelvic pain following bowel surgery 2 months ago, g ravida 0 TECHNIQUE: . Transabdominal sonographic images of the pelvis were acquired. Date of LMP: 07/06/2021 EXAM MEASUREMENTS: Uterus: 8.0 x 3.2 x 4.4 cm Endometrial Stripe: 0.6 cm Right Ovary: 4.4 x 2.0 x 1.8 cm Left Ovary: 4.3 x 3.8 x 5.5 cm 1. Uterus: anteverted 2. Endometrium: appears wnl 3. Right Ovary: multiple follicles 4. Left Ovary: 3.3 x 2.7 x 4.3cm cyst with internal echoes 5. Bilateral Adnexa: wnl 6. Posterior cul-de-sac: wnl IMPRESSION: 1. Left ovarian cyst. This is complex with internal echoes. Follow-up is recommended. 2. Multiple follicles on the right ovary.
== END | disposition home or self-care (01) ==
LOC: RADUSWWP 07-09 16:22
PROVIDERS: ATTEND Obstetrics & Gynecology
DX: N83.202 Unspecified ovarian cyst, left side (principal)
CPT/HCPCS: 76856

== ENCOUNTER 2021-10-20 14:56 | Emergency (ER) | payer BC, OTHER ==
[2021-10-20 15:00] VITALS: RESP 18
[2021-10-20] MEDS ORDERED: KETOROLAC 15 MG/ML 1 ML VIAL IVP STA (15:15)
[2021-10-20] MEDS ORDERED: SODIUM CHLORIDE 0.9% 1,000 ML IV STA (15:15)
[2021-10-20] MEDS ORDERED: ONDANSETRON 4 MG/2 ML VIAL IVP STA (15:15)
[2021-10-20 15:59] LABS: Anisocytosis Slight; Basophils # (A) 0.1 k/uL (0-0.2); Basophils % (A) 1 %; Eosinophils # (A) 0.1 k/uL (0-0.7); Eosinophils % (A) 1 %; HCT 38.6 % (34.0-46.0); HGB 11.3 gm/dL (11.4-16.0); Hypochromasia Marked; Lymphocytes # (A) 2.3 k/uL (1.0-4.8); Lymphocytes % (A) 15 %; MCH 21.4 pg (25.0-35.0); MCHC 29.2 g/dL (31.0-37.0); MCV 73.1 fL (80.0-100.0); Mean Platelet Volume 7.8; Microcytosis Moderate; Monocytes # (A) 0.5 k/uL (0-1.0); Monocytes % (A) 3 %; Neutrophils # (A) 11.9 k/uL (1.3-7.7); Neutrophils % (A) 80 %; Platelet Count 347 k/uL (150-450); RBC 5.28 m/uL (3.80-5.40); RDW 17.3 % (11.5-15.5); WBC 14.9 k/uL (3.8-10.6)
[2021-10-20 16:07] LABS: ALT 15 U/L (4-34); AST 23 U/L (14-36); African American GFR (CKD) >90 (>60 ml/min/1.73 sqM); Albumin 4.6 g/dL (3.5-5.0); Alkaline Phosphatase 76 U/L (38-126); Anion Gap 11 mmol/L; Blood Urea Nitrogen 9 mg/dL (7-17); Calcium 9.7 mg/dL (8.4-10.2); Carbon Dioxide 27 mmol/L (22-30); Chloride 102 mmol/L (98-107); Glucose 87 mg/dL (74-99); Non-African American GFR(CKD) >90 (>60 ml/min/1.73 sqM); Potassium 3.6 mmol/L (3.5-5.1); Sodium 140 mmol/L (137-145); Total Bilirubin 0.5 mg/dL (0.2-1.3); Total Protein 8.4 g/dL (6.3-8.2)
--- NOTE | 2021-10-20 16:24 | ED ---
Abdominal Pain HPI - General Chief Complaint: Abdominal Pain Stated Complaint: Post op Abdominal Pain Time Seen by Provider: 10/20/21 15:07 Source: patient, family Mode of arrival: wheelchair Limitations: no limitations - History of Present Illness Initial Comments: Patient is a 21-year-old female presenting with chief complaint of sudden onset pelvic pain. Patient states that while sitting in a chair at work today she had sudden onset sharp pain in the pelvis that caused her to drop to the ground. Patient states that it was accompanied by nausea and vomiting. States that she only has relief when lying on her side. Patient has a history of endometriosis, she states that the pain overlies her scar from recent surgery. Patient states that she began her menstrual cycle yesterday, denies excessive bleeding. Denies diarrhea, constipation, purulent vaginal discharge, dysuria, hematuria, urgency, frequency, fever, chills, upper abdominal pain, chest pain, shortness of breath. - Related Data Home Medications Medication Instructions Recorded Confirmed No Known Home Medications 10/20/21 10/20/21 Allergies Allergy/AdvReac Type Severity Reaction Status Date / Time No Known Allergies Allergy Verified 10/20/21 17:07 Review of Systems ROS Statement: Those systems with pertinent positive or pertinent negative responses have been documented in the HPI. ROS Other: All systems not noted in ROS Statement are negative. Past Medical History Past Medical History: No Reported History Additional Past Medical History / Comment(s): behavior problems History of Any Multi-Drug Resistant Organisms: None Reported Past Surgical History: Ear Surgery Additional Past Surgical History / Comment(s): Laproscopy and ovarian cyst drained. Past Anesthesia/Blood Transfusion Reactions: No Reported Reaction, Motion Sickness Past Psychological History: Anxiety, Depression Smoking Status: Never smoker Past Alcohol Use History: None Reported Past Drug Use History: Marijuana - Past Family History Mother Family Medical History: No Reported History General Exam Limitations: no limitations General appearance: alert, in no apparent distress Head exam: Present: atraumatic, normocephalic, normal inspection Eye exam: Present: normal appearance, EOMI. Absent: scleral icterus Neck exam: Present: normal inspection Respiratory exam: Present: normal lung sounds bilaterally. Absent: respiratory distress, wheezes, rales, rhonchi, stridor Cardiovascular Exam: Present: regular rate, normal rhythm, normal heart sounds. Absent: systolic murmur, diastolic murmur, rubs, gallop, clicks GI/Abdominal exam: Present: soft, tenderness (Bilateral sides of the pelvis, worse on the right side), normal bowel sounds. Absent: distended, guarding, rebound, rigid External exam: Present: normal external exam Speculum exam: Present: normal speculum exam, vaginal bleeding (currently on menstrual cycle) By manual exam: Present: normal by manual exam, adnexal tenderness (Normal, no guarding). Absent: cervical motion tenderness Back exam: Present: normal inspection Neurological exam: Present: alert, oriented X3, CN II-XII intact Psychiatric exam: Present: normal affect, normal mood Skin exam: Present: warm, dry, intact, normal color. Absent: rash Course Vital Signs 10/20/21 10/20/21 14:57 19:01 Temperature 97.0 F L 97.3 F L Pulse Rate 89 76 Respiratory 18 18 Rate Blood Pressure 105/63 114/71 O2 Sat by Pulse 97 99 Oximetry Medical Decision Making - Medical Decision Making Patient is a 21-year-old female presenting with chief complaint of pelvic pain. Patient states it was sudden in onset, accompanied by nausea and vomiting. History of endometriosis and ovarian cysts. Patient states it is worse on the right side. On exam there is discomfort on palpation over the pelvic region. Transvaginal ultrasound was obtained to rule out ovarian torsion, ultrasound is remarkable for hemorrhagic cyst on the left ovary. Ultrasound was also obtained to rule out appendicitis, imaging could not visualize the appendix. No free fluid is seen in the right lower quadrant and no significant fat str anding/inflammatory changes appreciated in the right lower quadrant. Pelvic exam showed minor bleeding, patient is currently on her menstrual cycle. There is no cervical motion tenderness or acute adnexal tenderness, patient states that it felt sore on palpation over the adnexa. Lab work shows leukocytosis with WBC of 14.9, this may be reactive as patient did vomit a few times before presenting today. Patient was given Toradol for pain control, on reassessment she states that her pain is well-controlled at this time. Patient appears stable for discharge with outpatient follow-up at this time. I gave the patient strict return parameters and educated her on appendicitis. Report back to ER with any worsening symptoms. Follow-up with PCP and CLOSING [facility]ENT in the next 1-2 days. I answered all questions. Patient conveyed verbal understanding and agreed to the plan. I discussed this case with my attending Dr. Paiz - Lab Data Result diagrams: 10/20/21 15:42 10/20/21 15:42 Lab Results 10/20/21 10/20/21 10/20/21 Range/Units 15:42 15:42 15:42 WBC 14.9 H (3.8-10.6) k/uL RBC 5.28 (3.80-5.40) m/uL Hgb 11.3 L (11.4-16.0) gm/dL Hct 38.6 (34.0-46.0) % MCV 73.1 L (80.0-100.0) fL MCH 21.4 L (25.0-35.0) pg MCHC 29.2 L (31.0-37.0) g/dL RDW 17.3 H (11.5-15.5) % Plt Count 347 (150-450) k/uL MPV 7.8 Neutrophils % 80 % Lymphocytes % 15 % Monocytes % 3 % Eosinophils % 1 % Basophils % 1 % Neutrophils # 11.9 H (1.3-7.7) k/uL Lymphocytes # 2.3 (1.0-4.8) k/uL Monocytes # 0.5 (0-1.0) k/uL Eosinophils # 0.1 (0-0.7) k/uL Basophils # 0.1 (0-0.2) k/uL Hypochromasia Marked Anisocytosis Slight Microcytosis Moderate Sodium (137-145) mmol/L Potassium (3.5-5.1) mmol/L Chloride (98-107) mmol/L Carbon Dioxide (22-30) mmol/L Anion Gap mmol/L BUN (7-17) mg/dL Creatinine (0.52-1.04) mg/dL Est GFR (CKD-EPI)AfAm (>60 ml/min/1.73 sqM) Est GFR (CKD-EPI)NonAf (>60 ml/min/1.73 sqM) Glucose (74-99) mg/dL Plasma Lactic Acid [place] (0.7-2.0) mmol/L Calcium (8.4-10.2) mg/dL Total Bilirubin (0.2-1.3) mg/dL AST (14-36) U/L ALT (4-34) U/L Alkaline Phosphatase (38-126) U/L Total Protein (6.3-8.2) g/dL Albumin (3.5-5.0) g/dL HCG, Quant mIU/mL Urine Color Yellow Urine Appearance Clear (Clear) Urine pH 5.5 (5.0-8.0) Ur Specific [place] 1.014 (1.001-1.035) Urine Protein Negative (Negative) Urine Glucose (UA) Negative (Negative) Urine Ketones Negative (Negative) Urine Blood Moderate H (Negative) Urine Nitrite Negative (Negative) Urine Bilirubin Negative (Negative) Urine Urobilinogen <2.0 (<2.0) mg/dL Ur Leukocyte Esterase Negative (Negative) Urine RBC 18 H (0-5) /hpf Urine WBC 1 (0-5) /hpf Ur Squamous Epith Cells 1 (0-4) /hpf Urine Mucus Few H (None) /hpf Urine HCG, Qual Not Detected (Not Detectd) Trichomonas Ag (Rapid) (Negative) Blood Type Blood Type Recheck Bld Type Recheck Status Antibody Screen Spec Expiration Date 10/20/21 10/20/21 10/20/21 Range/Units 15:42 15:42 15:42 WBC (3.8-10.6) k/uL RBC (3.80-5.40) m/uL Hgb (11.4-16.0) gm/dL Hct (34.0-46.0) % MCV (80.0-100.0) fL MCH (25.0-35.0) pg MCHC (31.0-37.0) g/dL RDW (11.5-15.5) % Plt Count (150-450) k/uL MPV Neutrophils % % Lymphocytes % % Monocytes % % Eosinophils % % Basophils % % Neutrophils # (1.3-7.7) k/uL Lymphocytes # (1.0-4.8) k/uL Monocytes # (0-1.0) k/uL Eosinophils # (0-0.7) k/uL Basophils # (0-0.2) k/uL Hypochromasia Anisocytosis Microcytosis Sodium 140 (137-145) mmol/L Potassium 3.6 (3.5-5.1) mmol/L Chloride 102 (98-107) mmol/L Carbon Dioxide 27 (22-30) mmol/L Anion Gap 11 mmol/L BUN 9 (7-17) mg/dL Creatinine 0.61 (0.52-1.04) mg/dL Est GFR (CKD-EPI)AfAm >90 (>60 ml/min/1.73 sqM) Est GFR (CKD-EPI)NonAf >90 (>60 ml/min/1.73 sqM) Glucose 87 (74-99) mg/dL Plasma Lactic Acid [place] 1.4 (0.7-2.0) mmol/L Calcium 9.7 (8.4-10.2) mg/dL Total Bilirubin 0.5 (0.2-1.3) mg/dL AST 23 (14-36) U/L ALT 15 (4-34) U/L Alkaline Phosphatase 76 (38-126) U/L Total Protein 8.4 H (6.3-8.2) g/dL Albumin 4.6 (3.5-5.0) g/dL HCG, Quant <2.4 mIU/mL Urine Color Urine Appearance (Clear) Urine pH (5.0-8.0) Ur Specific [place] (1.001-1.035) Urine Protein (Negative) Urine Glucose (UA) (Negative) Urine Ketones (Negative) Urine Blood (Negative) Urine Nitrite (Negative) Urine Bilirubin (Negative) Urine Urobilinogen (<2.0) mg/dL Ur Leukocyte Esterase (Negative) Urine RBC (0-5) /hpf Urine WBC (0-5) /hpf Ur Squamous Epith Cells (0-4) /hpf Urine Mucus (None) /hpf Urine HCG, Qual (Not Detectd) Trichomonas Ag (Rapid) (Negative) Blood Type A Positive Blood Type Recheck A Pos Bld Type Recheck Status No Antibody Screen NEGATIVE Spec Expiration Date 10/23/2021 - 234110/20/21 Range/Units 18:49 WBC (3.8-10.6) k/uL RBC (3.80-5.40) m/uL Hgb (11.4-16.0) gm/dL Hct (34.0-46.0) % MCV (80.0-100.0) fL MCH (25.0-35.0) pg MCHC (31.0-37.0) g/dL RDW (11.5-15.5) % Plt Count (150-450) k/uL MPV Neutrophils % % Lymphocytes % % Monocytes % % Eosinophils % % Basophils % % Neutrophils # (1.3-7.7) k/uL Lymphocytes # (1.0-4.8) k/uL Monocytes # (0-1.0) k/uL Eosinophils # (0-0.7) k/uL Basophils # (0-0.2) k/uL Hypochromasia Anisocytosis Microcytosis Sodium (137-145) mmol/L Potassium (3.5-5.1) mmol/L Chloride (98-107) mmol/L Carbon Dioxide (22-30) mmol/L Anion Gap mmol/L BUN (7-17) mg/dL Creatinine (0.52-1.04) mg/dL Est GFR (CKD-EPI)AfAm (>60 ml/min/1.73 sqM) Est GFR (CKD-EPI)NonAf (>60 ml/min/1.73 sqM) Glucose (74-99) mg/dL Plasma Lactic Acid [place] (0.7-2.0) mmol/L Calcium (8.4-10.2) mg/dL Total Bilirubin (0.2-1.3) mg/dL AST (14-36) U/L ALT (4-34) U/L Alkaline Phosphatase (38-126) U/L Total Protein (6.3-8.2) g/dL Albumin (3.5-5.0) g/dL HCG, Quant mIU/mL Urine Color Urine Appearance (Clear) Urine pH (5.0-8.0) Ur Specific [place] (1.001-1.035) Urine Protein (Negative) Urine Glucose (UA) (Negative) Urine Ketones (Negative) Urine Blood (Negative) Urine Nitrite (Negative) Urine Bilirubin (Negative) Urine Urobilinogen (<2.0) mg/dL Ur Leukocyte Esterase (Negative) Urine RBC (0-5) /hpf Urine WBC (0-5) /hpf Ur Squamous Epith Cells (0-4) /hpf Urine Mucus (None) /hpf Urine HCG, Qual (Not Detectd) Trichomonas Ag (Rapid) Negative (Negative) Blood Type Blood Type Recheck Bld Type Recheck Status Antibody Screen Spec Expiration Date - Radiology Data Radiology results: report reviewed ultrasound is remarkable for hemorrhagic cyst on the left ovary. Ultrasound was also obtained to rule out appendicitis, imaging could not visualize the appendix. No free fluid is seen in the right lower quadrant and no significant fat stranding/inflammatory changes appreciated in the right lower quadrant. Disposition Clinical Impression: Left ovarian cyst Disposition: HOME SELF-CARE Condition: Good Instructions (If sedation given, give patient instructions): Ovarian Cyst (ED) Additional Instructions: Follow up with primary care and CLOSING AGENT in 1-2 days. Take Motrin and Tylenol for pain relief as needed. Report back to ER with any worsening symptoms, including but not limited to fever, chills, nausea, vomiting, increased pain, dysuria, abdominal rigidity. Is patient prescribed a controlled substance at d/c from ED?: No Referrals: None,Stated [Primary Care Provider] - 1-2 days Time of Disposition: 18:38
[2021-10-20 16:28] LABS: HCG,Quantitative Serum <2.4 mIU/mL
--- NOTE | 2021-10-20 16:32 | US ---
EXAMINATION TYPE: US transvaginal DATE OF EXAM: 10/20/2021 COMPARISON: US dated 07/21/2021 &CT dated 06/17/2021 CLINICAL HISTORY: Sudden onset pelvic pain. Pt states RLQ pain that started today/ pt states history of endometriosis and chocolate cyst drained twice from left ovary TECHNIQUE: Transvaginal (TV). Transvaginal sonographic images of the pelvis were acquired. Date of LMP: 10/19/2021 EXAM MEASUREMENTS: Uterus: 9.1 x 4.0 x 4.9 cm Endometrial Stripe: 0.6 cm Right Ovary: 3.1 x 1.9 x 2.4 cm Left Ovary: 5.1 x 3.7 x 5.0 cm 1. Uterus: Anteverted wnl 2. Endometrium: wnl 3. Right Ovary: wnl 4. Left Ovary: Complex cystic lesion= 3.5 x 2.8 x 3.3 cm Spectral, color and waveform doppler imaging shows arterial and venous flow within the ovaries. 5. Bilateral Adnexa: wnl, many peristalsing bowel loops visualized 6. Posterior cul-de-sac: wnl, many peristalsing bowel loops visualized IMPRESSION: Lesion in the left adnexa may represent hemorrhagic cyst, somewhat similar to prior exam
[2021-10-20 16:50] LABS: Appearance,Urine Clear (Clear); Bilirubin,Urine Negative (Negative); Blood,Urine Moderate (Negative); Color,Urine Yellow; Glucose,Urine (UA) Negative (Negative); Ketones,Urine Negative (Negative); Leukocyte Esterase,Urine Negative (Negative); Mucus,Urine Few /hpf; Nitrite,Urine Negative (Negative); PH, Urine 5.5 (5.0-8.0); Protein,Urine Negative (Negative); RBC,Urine 18 /hpf (0-5); Specific Gravity,Urine 1.014 (1.001-1.035); Squamous Epithelial Cell,Urine 1 /hpf (0-4); Urobilinogen,Urine <2.0 mg/dL (<2.0); WBC,Urine 1 /hpf (0-5)
--- NOTE | 2021-10-20 17:55 | US ---
EXAMINATION TYPE: US abdomen APPY DATE OF EXAM: 10/20/2021 COMPARISON: NONE CLINICAL HISTORY: RLQ pain. RLQ pain, nausea and vomiting today FINDINGS: Nonvisualized appendix. No free fluid is seen in the right lower quadrant. No significant fat strandi ng/inflammatory changes appreciated in the right lower quadrant.
[2021-10-20 19:03] VITALS: BP 114/71; PULSE 76; TEMP 97.3
[2021-10-22 08:16] LABS: C. trachomatis,PCR Negative (Neg,Equiv); Chlamydia trachomatis Source Cervix; N. gonorrhoeae,PCR Negative (Neg,Equiv); Neisseria Source Cervix
== END 2021-10-20 19:01 | disposition home or self-care (01) ==
LOC: EC 14:56
DX: N83.202 Unspecified ovarian cyst, left side (principal); F12.90 Cannabis use, unspecified, uncomplicated
CPT/HCPCS: 99284 ×2; 96374 ×2; 96375 ×2; 96361 ×2; 36415; 86900; 86901; 80053; 83605; 85025; 86850; 81001; 81025; 84702; 87808; 87491; 87591; 93975; 76705; 76830; J2405; J1885

== ENCOUNTER → 2022-10-17 | Outpatient (CLI) | payer BC, OTHER ==
--- NOTE | 2022-10-17 14:48 | US ---
EXAMINATION TYPE: US pelvic complete DATE OF EXAM: 10/17/2022 COMPARISON: NONE CLINICAL INDICATION: Female, 22 years old with history of N83.209; Endometriosis hx of cysts. TECHNIQUE: Transabdominal (TA). Transabdominal sonographic images of the pelvis were acquired. EXAM MEASUREMENTS: Uterus: 6.2 x 3.7 x 3.8 cm Endometrial Stripe: .4 cm Right Ovary: 4.7 x 1.8 x 2.4 cm Left Ovary: 4.8 x 5.1 x 7.7 cm 1. Uterus: Anteverted Fluid visualized in cervix. 2. Endometrium: wnl 3. Right Ovary: Follicles seen. 4. Left Ovary: Enlarged hypoechoic area measuring 4.2 x 4.5 x 6.5 cm versus 3.5 x 2.8 x 3.3 cm previ ously. 5. Bilateral Adnexa: wnl 6. Posterior cul-de-sac: wnl IMPRESSION: 1. Enlarging hypoechoic mass left ovary is nonspecific. Differential diagnostic possibilities include endometrioma as well as a neoplasm or enlarging complex cystic lesion. Continued follow-up and/or di rect visualization is advised.
== END | disposition home or self-care (01) ==
LOC: RADUSWWP 12:14
PROVIDERS: ATTEND Family Medicine
DX: N83.202 Unspecified ovarian cyst, left side (principal); N83.8 Other noninflammatory disorders of ovary, fallopian tube and broad ligament
CPT/HCPCS: 76856

== ENCOUNTER → 2024-10-29 | Outpatient (CLI) | payer BC ==
--- NOTE | 2024-10-29 14:28 | US ---
EXAMINATION TYPE: US pelvis complete transvag DATE OF EXAM: 10/29/2024 COMPARISON: US 2022, CT 2020 CLINICAL INDICATION: Female, 24 years old with history of N83.209 Cyst of ovary, unspe laterality; Le ft ovarian cyst, hx endometriosis, pt has had laparoscopies. IUD placed in February 2024- pt is unsure what kind. G0 TECHNIQUE: Transvaginal (TV) and Transabdominal (TA) . Transabdominal grayscale sonographic images of the pelvis were acquired. Transvaginal sonographic im ages were medically necessary to better assess the following anatomy: IUD Doppler imaging: Not performed. FINDINGS: Date of LMP: Unknown EXAM MEASUREMENTS: Uterus: 6.9 x 4.9 x 3.5 cm Endometrial Stripe: Unable to clearly visualize with IUD Right Ovary: 5.0 x 2.0 x 2.4 cm Left Ovary: 5.8 x 4.6 x 4.5 cm 1. Uterus: Anteverted *Some fluid seen in cervix: 1.6 x 0.7 x 0.2 cm. 2. Endometrium: *IUD seen within upper endometrium 3. Right Ovary: Appears wnl 4. Left Ovary: Large hypoechoic area seen: 5.2 x 4.0 x 3.6 cm. Arterial and venous waveforms noted to left ovary; left ovary appears enlarged. 5. Bilateral Adnexa: Appear wnl 6. Posterior cul-de-sac: Appears wnl IMPRESSION: 1. Complex lesion left ovary which currently measures 5.2 x 4.2 x 3.6 cm versus 4.2 x 4.5 x 6.5 cm pr eviously. Differential diagnostic possibilities include endometrioma, neoplasm or less likely hemorrh agic cyst. O-RADS 2021 [email or web address] [facility], , 10/29/2024 2:26 PM
== END | disposition home or self-care (01) ==
LOC: RADUSWWP 13:32
DX: N83.8 Other noninflammatory disorders of ovary, fallopian tube and broad ligament (principal); N83.209 Unspecified ovarian cyst, unspecified side
CPT/HCPCS: 76830; 76856; 93976